=== PATIENT | female | born 1930 | race Caucasian/White ===

== ENCOUNTER → 2016-07-25 | Outpatient (CLI) | payer MEDICARE, BC ==
[~2016-07-25] MED LIST: ACETAMINOPHEN PO; ALBUTEROL17 GM INH; AMOXICILLIN500 M1 PO; ASPIRIN; ASPIRIN PO; ASPIRIN81 M1 PO; ATIVAN PO; CARAFATE PO; CARBIDOPA-LEVO1 EAC5 PO; CELEXA PO; CELEXA10 MG PO; CELEXA20 MG PO; CERTAGEN PO; COUMADIN PO; COUMADIN5 MG PO; DAZIDOX10 MG PO; DECADRON; DOXYCYCLINE PO; EMBEDA; KCL; KLOR-CON 88 ME1; KLOR-CON 88 ME1 PO; LASIX PO; LASIX20 MG PO; LISINOPRIL2.5 MG PO; LORAZEPAM1 MG PO; LOVENOX80 MG/0.8 INJ; MIRALAX255 GM; MUCINEX D ER T1 EAC1 PO; MUCINEX DM TABL1 BOX PO; MUCINEX OTC; MUCINEX100 MG/BOX PO; MULTI VITAMIN1 EACH PO; MULTI-DAY VITAM1 TAB PO; MULTI-VITAMIN1 TAB; MULTIVITAMIN1 UDCAP PO; MULTIVITAMINS1 EAC3 PO; OMEPRAZOLE40 MG PO; OSTEO BI-FLEX1 EAC1 PO; OSTEO BI-FLEX1 EAC2 PO; OSTEO BI-FLEX1 EACH PO; OSTEO BIFLEX; OXECTA7.5 MG PO; OXYCODON-ACETA1 EAC1 PO; OXYCODONE HCL10 M1 PO; OXYCODONE HCL10 MG PO; OXYCODONE-ACET1 EAC1 PO; OXYCONTIN PO; OXYCONTIN20 MG PO; PATIENT'S PHARMACY; PERCOCET; PRAVACHOL PO; PRAVASTATIN SOD20 MG PO; PRAVASTATIN SOD40 MG; PREDNISONE5 M1 PO; PRILOSEC; PRILOSEC PO; PRILOSEC20 M1 PO; PRILOSEC20 MG; PRILOSEC40 MG PO; PYRIDIUM PO; SENNA LAXATIVE1 TAB PO; SENNA8.6 M1 PO; SENNA8.6 M2 PO; VYTORIN 10/20 T1 TAB; ZOFRAN ODT4 MG PO; [UNRECOGNIZED DRUG - REMARK]; mucinex PO
--- NOTE | ~2016-07-25 | CT71 ---
[facility] A Service of [facility] RADIOLOGY TEXT RESULTS PATIENT: RAHUL AARON LOCATION: [facility] : 31 UNIT #: [id number] AGE: [address]: Geovanny Malin MD SEX: F ORDER DR: [id number] [place] [id number] [facility]. [place], [place] [address] [id number] O MR#: [id number] Acc #: [id number] NAME: RAHUL AARON : 1930 SEX: F STUDY DATE/TIME: 07/25/2016 15:46 UNIT: [facility] ROOM: STUDY DESCRIPTION: CT Head Wo Contrast Attending Physician: Geovanny Malin Jr., M.D. Referring Physician: Geovanny Malin Jr., M.D. Ordering Physician: Geovanny Malin Jr., M.D. Primary Care Physician: Geovanny Malin Jr., M.D. MEDICAL IMAGING REPORT This report is preliminary unless electronic signature is present EXAM CT scan of the head without contrast INDICATION Head trauma 2 years ago with headaches since then which are worsening in the last week. COMPARISON 06/27/[address] exam was performed with one or more of the following radiation dose reduction techniques: automatic exposure control, adjustment of mA and/or kV according to patient size, and iterative reconstruction. FINDINGS Unenhanced images were obtained through the brain. There is mild generalized atrophy with symmetric small vessel ischemic changes around the ventricles. There has been no change from the prior study. There are no acute findings. There is no hemorrhage. IMPRESSION Stable atrophy and small vessel ischemic changes. No acute findings. Dictated by... Kurt العراقي M.D. THIS IS AN ELECTRONICALLY VERIFIED REPORT Kurt العراقي M.D. at 07/26/2016 11:53 AM MARY/mariah TD: 07/26/2016 10:26 JOB #: [id number] [facility] A Service of [facility] RADIOLOGY TEXT RESULTS PATIENT: RAHUL AARON [id number] UNIT #: [id number] AGE: [address]: Geovanny Malin MD SEX: F ORDER DR: MEDICAL IMAGING REPORT Page 1 of 1 COPY
== END | disposition home or self-care (01) ==
LOC: CCAT 15:13
DX: R51 Headache (principal); G31.9 Degenerative disease of nervous system, unspecified
CPT/HCPCS: 70450

== ENCOUNTER 2016-09-28 15:03 | Inpatient (IN) | payer MEDICARE, BC ==
[~2016-09-28] VITALS: Ht 157.5 cm; Wt 56.0 kg
--- NOTE | ~2016-09-28 | CR72 ---
[facility] A Service of [facility] RADIOLOGY TEXT RESULTS PATIENT: RAHUL AARON LOCATION: [facility] 303- : 31 UNIT #: [id number] AGE: [address]: Ani Caballero MD SEX: F ORDER DR: [id number] [facility] [address] [place], [place] [address] [id number] I MR#: [id number] Acc #: [id number] NAME: RAHUL AARON : 1930 SEX: F STUDY DATE/TIME: 10/01/2016 6:30 UNIT: [address] ROOM: [facility] STUDY DESCRIPTION: CR Chest Single View Portable Attending Physician: Ani Caballero M.D. Ordering Physician: Zoran Gillette M.D. Primary Care Physician: Geovanny Malin Jr., M.D. MEDICAL IMAGING REPORT This report is preliminary unless electronic signature is present EXAM Portable chest INDICATION Shortness of air and chest pain today. PROCEDURE Frontal view chest. COMPARISON 09/28/2016. FINDINGS Heart size is unchanged. Interval increase in size of the left pleural effusion now large. No new dense consolidation or visible pneumothorax. IMPRESSION Interval increase in size of the left pleural effusion since 09/28/2016. Dictated by... Jose Bird M.D. THIS IS AN ELECTRONICALLY VERIFIED REPORT Jose Bird M.D. at 10/02/2016 8:16 AM LAW/stacy TD: 10/01/2016 07:44 JOB #: [id number] MEDICAL IMAGING REPORT Page 1 of 1 COPY
--- NOTE | ~2016-09-28 | CO ---
Unit #: [id number] #: [id number] Patient: RAHUL NOLEN [id number] [address] [address] [id number] I MR#: [id number] NAME: RAHUL NOLEN ROOM: 303 Age: 86 Sex: F Admission Date: 09/28/2016 : 1930 Attending Physician: Ani Caballero M.D. Primary Care Physician: Geovanny Malin Jr., M.D. Consultation Date: 10/01/2016 CONSULTATION REPORT REASON FOR CONSULTATION Congestive heart failure. HISTORY OF PRESENT ILLNESS This is an 86-year-old white female with a past medical history of having an ITP and status post splenectomy, history of PE, DVT, status post IVC filter, history of esophageal strictures, chronic pain, is on pain medicines for every 4 hours. She also has anxiety and depression. She lives with her , who is her caregiver and also her son and granddaughter helps with her care. The patient is a fairly poor historian, but her and son are at the bedside. They contribute to her history. The patient has been having a 2 to 3 month history of increasing shortness of breath and worsening productive cough. No fever or chills. Denies any chest pain, pain in her neck, bilateral jaws, shoulders, arms, or elbow. She does have 2-pillow orthopnea that is not new. No paroxysmal nocturnal dyspnea or orthopnea, just has a little bit of swelling in her lower extremities. No significant weight gain or weight loss. She does not have a very good appetite according to the spouse. She was having a little bit of nausea and vomiting, but sometimes it is not unusual. She does have difficulty swallowing and has choked on her food and on her last EGD it did show she had esophageal stricture that was difficult dilatation. She has severe presbyesophagus as well as tight esophageal strictures. The patient is being treated for fluid overload. Her echo showed LVEF of 50% to 55% with moderate to severe tricuspid regurgitation. The patient was started on IV Lasix. Her chest x-ray showed vascular congestion, bilateral interstitial prominence and small to moderate size bilateral pleural effusions, larger on the left. BNP on admission was 99, but based on her worsening chest x-ray and her symptoms, Cardiology has been asked to assist with evaluation and management. PAST MEDICAL HISTORY 1. History of ITP, status post splenectomy. 2. History of pulmonary embolism and DVT, status post IVC filter. 3. History of hyperlipidemia. 4. Chronic pain syndrome, maintained on oxycodone, followed by Dr. Campa. 5. Anxiety and depression. 6. History of esophageal strictures. EGD showed severe presbyesophagus as well as tight esophageal strictures. Unit #: [id number] #: [id number] Patient: RAHUL NOLEN 7. Tremors, the patient is on carbidopa and levodopa, follows Dr. Chowdhury for possible Parkinson's. PAST SURGICAL HISTORY 1. IVC filter placement. 2. EGD and colonoscopy. 3. Splenectomy. 4. Cataract surgery. 5. Cholecystectomy. 6. Appendectomy. 7. Hemorrhoid surgery. 8. Bilateral knee surgery. HOME MEDICATIONS Oxycodone/acetaminophen 10/325 one tablet p.o. 5 times daily p.r.n. for pain, carbidopa/levodopa 25/100 one tablet p.o. b.i.d., Prilosec 40 mg p.o. b.i.d., Lorazepam 1 mg p.o. daily, citalopram 20 mg 1 tablet daily, Pravachol 20 mg p.o. daily, Coumadin 2.5 mg p.o. daily, multivitamin one tablet daily, Senokot one tablet p.o. daily. ALLERGIES Sulfonamides, codeine, clavulanic acid, ciprofloxacin, omeprazole, lansoprazole. SOCIAL HISTORY The patient lives at home with her who is her caregiver and the son and granddaughter help with her care. She uses a walker when she does get around. She is very sedentary. She quit smoking several few years ago. No alcohol or illicit drug abuse. FAMILY HISTORY Her brother had colon cancer. REVIEW OF SYSTEMS See details in HPI. PHYSICAL EXAMINATION GENERAL: Ms. Nolen is an 86-year-old white female, in no acute respiratory distress. She is awake, alert, answers some questions, but has a poor memory recall. VITAL SIGNS: Currently, blood pressure is 121/70, heart rate is 96, respirations 18, temperature 97.3, O2 saturations 96% on room air. NECK: Trachea midline. No thyromegaly or lymphadenopathy. Normal carotid upstrokes. No jugular venous distention. HEART: S1, S2. Regular rate and rhythm. Soft systolic murmur, lower left sternal border. LUNGS: Diminished with few faint rales in bases. ABDOMEN: Slightly obese, soft, and nontender. EXTREMITIES: Pedal pulses are palpable. Trace pedal edema. DIAGNOSTIC STUDIES LABORATORY RESULTS: ABGs on admission; pH is 7.420, pCO2 of 41.5, pO2 of 79.0 and that was on 2 L. Glucose 80, BUN 10, creatinine 0.8, eGFR is 67.3. Sodium 141, potassium 4.9, chloride 104, CO2 of 30, calcium is 8.0, total protein 5.4, albumin 2.2, bilirubin total 0.5, AST 13, ALT 8, alkaline phosphatase is 87. TSH is 2.12. WBC is 17.9, hemoglobin 11.2, hematocrit 35.2 and platelets is 438. Initial cardiac enzymes; CK-MB is 2.1 with troponin less than 0.05. Repeat troponin less than 0.03, less Unit #: [id number] #: [id number] Patient: SELVAGE,RAHUL than 0.03. BNP is 99 on admission. INR is 2.6. Urinalysis; leuk esterase trace, 0.2 urobilinogen, 5 to 10 rbc's, 5 to 10 wbc's. Urine culture, final, mixed growth of gram-positive zach. Sputum; final, just moderate wbc's and no organisms. Blood cultures, preliminary report, negative. IMAGING STUDIES: Chest x-ray done today shows interval increase in size of the left pleural effusion since 09/28/2016. On admission, her chest x-ray showed vascular congestion and bilateral interstitial prominence raises suspicions of congestive heart failure, fluid overload and small to moderate size bilateral pleural effusions, left larger than right. EKG shows normal sinus rhythm with sinus arrhythmia, some slow R-wave progression, low voltage, nonspecific ST-T wave abnormalities. IMPRESSION 1. Acute on chronic hypoxic respiratory failure. 2. Pneumonia. 3. Acute congestive heart failure, diastolic, left ventricular ejection fraction of 50% to 55% on 2D echo on 09/29/2016. 4. Moderate to severe tricuspid regurgitation with elevated RVSP 49 mmHg. 5. Also shows moderately enlarged right atrial size. 6. Dysphagia, following by Dr Morillo, has a history of esophageal strictures. 7. Chronic pain syndrome. 8. Questionable Parkinson disease. 9. Hyperlipidemia. 10. Reformed smoker. 11. History of deep venous thrombosis and pulmonary embolism with therapeutic INR and has inferior vena cava filter. 12. Bilateral pleural effusions. 13. History of idiopathic thrombocytopenic purpura, status post splenectomy. 14. Moderate protein malnutrition. 15. Questionable dementia. 16. Anxiety. PLAN 1. Cardiology consult to assist with managing patient's congestive heart failure. Continue diuresing with IV Lasix. Strict intake and output. Daily weight, 1800 mL, and 24 hour fluid restriction. 2. Dr. Key had a long discussion with the patient's spouse and son at the bedside. Dr. Key is familiar with the patient's family. The patient's is her patient in the office. 3. Continue the patient on her Coumadin anticoagulation. No signs or symptoms of acute bleeding. 4. On exam, there are no signs or symptoms of unstable angina. 5. At this point, no further ischemic heart disease workup is necessary because of her multiple comorbidities and the wants conservative medical management. 6. Continue treatment for her pneumonia and respiratory failure. 7. Pulmonology has been consulted for the left lower effusion, she may need a thoracentesis. Thank you very much for allowing us to assist in her care. Further recommendations pending per Dr. Key. Unit #: [id number] #: [id number] Patient: RAHUL NOLEN Dictated by... Maldonado Francois/hal TD: 10/02/2016 02:17 JOB #: [id number] CONSULTATION REPORT Page 1 of 1 X Mellisa Burgos APRN CONSULTATION REPORT
--- NOTE | ~2016-09-28 | DS ---
Unit #: [id number] #: [id number] Patient: RAHUL NOLEN [id number] [address] [address] [id number] I MR#: [id number] NAME: RAHUL NOLEN ROOM: 303 Age: 86 Sex: F Admission Date: 09/28/2016 : 1930 Discharge Date: 10/04/2016 Attending Physician: Ani Caballero M.D. Primary Care Physician: Geovanny Malin Jr., M.D. DISCHARGE SUMMARY PRINCIPAL DIAGNOSES 1. Sepsis secondary to left lower lobe pneumonia. 2. Large exudative left pleural effusion with pending flow cytometry. 3. Ixhef-cz-ybqgrth diastolic congestive heart failure with ejection fraction of 55%. 4. Acute hypoxic respiratory failure. 5. Dysphagia. 6. Kijhxeqs-ny-gzmkpo tricuspid regurgitation. 7. History of deep venous thrombosis and pulmonary embolism maintained on chronic anticoagulation. 8. Chronic pain, maintained on narcotics. 9. Moderate protein malnutrition. 10. Tremor without evaluation for Parkinson's disease in progress. 11. Anxiety. 12. Dementia. 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 14. Right state 1 to 2 heel pressure ulcers. 15. Pulmonary hypertension. 16. Mediastinal lymphadenopathy with pleural effusion concerning for underlying lymphoma. 17. Moderate protein malnutrition. 18. History of idiopathy thrombocytopenia purpura status post splenectomy. 19. Depression. 20. Hyperlipidemia. CONSULTANTS 1. Dr. Packer - pulmonology 2. Dr. Key - cardiology 3. Dr. Quiros - oncology 4. Dr. Morillo - gastroenterology PROCEDURES 1. Left-sided thoracentesis on October 03, 2012 with removal of 1300 mL of fluid, Gram stain was negative and fluid consistent with exudative effusion, flow cytometry pending. 2. Chest x-ray, September 28, 2016, with cardiac enlargement and vascular congestion, bilateral interstitial prominence noted, bilateral pleural effusions noted. Consolidation atelectasis left lung base noted. 3. CT of the chest without contrast on October 02, 2016, with a left left-sided effusion, complete atelectasis left lower lobe, small right-sided effusion, tree-n-bud infiltrates of the right lung are noted, large hiatal hernia intrathoracic stomach noted, prominence of mediastinal lobes, aneurysmal dilatation of the aorta noted, 4 mm Unit #: [id number] #: [id number] Patient: RAHUL NOLEN noncalcified nodule in the upper lobe of the left, the patient is status post splenectomy. 4. 2 dimensional echocardiogram, on September 29, 2016, with ejection fraction of 50% to 55%, severe septal hypokinesis noted, moderately enlarged right atrial size and moderately dilated right ventricle, moderate severe tricuspid regurgitation and a right ventricular systolic pressure 49 mmHg. CLINICAL HISTORY AND HOSPITAL COURSE Ms. Nolen is a nice 86-year-old female, who presented to the emergency department with increasing shortness of breath. Please refer to history and physical, for further details. Chest x-ray, in the emergency department, though questionable pneumonia, particularly on the right lower lobe. The patient was found to be hypoxic on room air and she had a white count of 14,000. Chest x-ray was also consistent with congestive heart failure. The patient was subsequently admitted. The patient was placed on broad spectrum antibiotic therapy but virtually her respiratory status did not improve. Cardiology was consulted given her vascular congestion. Placed her on diuretics, again with only slight improvement in her respiratory status. 2 dimensional echocardiogram was done with results as noted. At this point, she will be maintained on diuretics as an outpatient and was also placed on a low dose of lisinopril. She will follow up with cardiology on an outpatient basis. In regards to the patient pneumonia, again, she was maintained on the antibiotics, namely Rocephin and doxycycline. She remained afebrile and her white blood cell count remained stable at 14. She will complete a few more days of doxycycline as an outpatient. The patient had pleural effusion upon presentation which subsequently worsened particularly on the left. At this point, pulmonology was consulted and the patient subsequently underwent thoracentesis after reversal of her Coumadin with FFP, 1300 mL of fluid were removed and flow cytometry is currently pending. There have been no organisms noted on Gram stain. A CT scan of the chest was done and during the evaluation the patient's pleural effusion showed a significant new lymphadenopathy in addition to appearance of some underlying kidney disease and has some underlying lymphoma. Dr. Quiros was consulted. At this point again flow cytometry is pending and he will follow this up on an outpatient basis and treat the patient if necessary. The patient does have some significant underlying memory loss of which the family is aware and they are very supportive at home. Family does not wish for her to go to rehab at this point. The patient will be discharged home today with home health. She will need close follow up of her INR given her Coumadin is reversed for her thoracentesis. The patient did have some significant dysphagia particularly upon presentation. She was seen by speech therapy who modified diet and subsequently increased during hospitalization. Dr. Morillo was consulted given concerns for perhaps needing EGD but the patient is clinically improved and I think this can be followed up as an outpatient. Unit #: [id number] #: [id number] Patient: RAHUL NOLEN DISCHARGE CONDITION Stable. DISCHARGE STATUS Discharged to home. DISCHARGE MEDICATIONS 1. Coumadin 2.5 mg daily 2. Celexa 20 mg daily 3. Pravachol 20 mg daily 4. Ativan 1 mg p.o. daily 5. Senna 8.6 mg p.o. daily p.r.n. for constipation 6. Lasix 20 mg b.i.d. 7. Lisinopril 2.5 mg daily 8. Carbidopa-Levodopa 25/100 mg one b.i.d. 9. Daily multivitamin 10. Percocet 10/325 one p.o. five times daily p.r.n. for pain 11. Prilosec 40 mg b.i.d. 12. Doxycycline 100 mg p.o. b.i.d. for two days DISCHARGE INSTRUCTIONS The patient is instructed to follow a regular diet. In regards to her diet consistency she should remain on soft diet with thin liquids. Family has been instructed on reflux precautions. The patient can increase her activity as tolerated. FOLLOWUP The patient is to have a follow up INR done October 06, 2016 via home health. She should follow up with Dr. Quiros next week in regards to results of her pleural fluid study. Dictated by... Ani Caballero M.D. MAKEDA/adi TD: 10/05/2016 09:39 JOB #: [id number] DISCHARGE SUMMARY Page 1 of 1 X Ani Caballero MD DISCHARGE SUMMARY
--- NOTE | ~2016-09-28 | CR72 ---
[facility] A Service of [facility] RADIOLOGY TEXT RESULTS PATIENT: RAHUL AARON LOCATION: [facility] 303- : 31 UNIT #: [id number] AGE: [address]: Ani Caballero MD SEX: F ORDER DR: [id number] [facility] [address] [place], [place] [address] [id number] I MR#: [id number] Acc #: [id number] NAME: RAHUL AARON : 1930 SEX: F STUDY DATE/TIME: 09/28/2016 16:21 UNIT: [address] ROOM: [facility] STUDY DESCRIPTION: CR Chest Single View Portable Attending Physician: Humaira Mendoza M.D. Ordering Physician: Wilton Berrios M.D. Primary Care Physician: Geovanny Malin Jr., M.D. MEDICAL IMAGING REPORT This report is preliminary unless electronic signature is present EXAM Portable chest HISTORY Shortness of air and cough for 3 months. FINDINGS Dense consolidation or atelectasis in the left base and mild interstitial prominence in the mid and lower lungs bilaterally and small bilateral pleural effusions, probably larger on the left are new findings compared to 02/07/2014. Probable underlying cardiomegaly with previously noted large hiatal hernia likely contributing to the density in the right cardiophrenic angle corresponding to a similar findings on older chest x-rays. Central vascular congestion as well. IMPRESSION 1. Cardiac enlargement and vascular congestion and bilateral interstitial prominence raises suspicion of congestive heart failure or fluid overload. 2. Small to moderate-sized bilateral pleural effusions, probably larger on the left. 3. Consolidation or atelectasis in the left base. 4. Previously noted large hiatal hernia contributes to the density at the right cardiophrenic angle and corresponds to prior findings on x-ray and CT. Dictated by... Joel Melendez M.D. THIS IS AN ELECTRONICALLY VERIFIED REPORT Joel Melendez M.D. at 09/29/2016 10:07 PM DFL/saman [facility] A Service of [facility] RADIOLOGY TEXT RESULTS PATIENT: RAHUL AARON LOCATION: [facility] 303-01 : 31 UNIT #: [id number] AGE: [address]: Ani Caballero MD SEX: F ORDER DR: TD: 09/28/2016 21:42 JOB #: [id number] MEDICAL IMAGING REPORT Page 1 of 1 COPY
--- NOTE | ~2016-09-28 | HP ---
Unit #: [id number] #: [id number] Patient: RAHUL AARON [id number] [facility] [address] [facility]. [place], [place] [address] [id number] I MR#: [id number] NAME: RAHUL AARON ROOM: 94818 Age: 86 Sex: F Admission Date: 09/28/2016 : 1930 Attending Physician: Humaira Mendoza M.D. Primary Care Physician: Geovanny Malin Jr., M.D. HISTORY AND PHYSICAL CHIEF COMPLAINT Shortness of air. HISTORY OF PRESENT ILLNESS The patient is an 86-year-old female with past medical history of hyperlipidemia, ITP, PE/DVT, chronic anticoagulation with Coumadin, chronic pain, anxiety, depression, esophageal stricture, tremor, cognitive impairment, who presented to the emergency department for evaluation of the above. History is obtained from chart review and discussion with the ER staff as well as from multiple family members, including her , who are at bedside. The patient has apparently had a two to three month history of increasing shortness of breath and intermittently productive cough. She has not had fever. She denies any chest pain. She has two-pillow orthopnea that is not a new problem. She denies any paroxysmal nocturnal dyspnea. No swelling of the legs. She has maintained her weight. She has actually lost weight over the past couple of years. She has had decreased appetite. She reports one bout of emesis. She has intermittent problems with constipation. She does report difficulty swallowing. She sometimes gets choked on her food. In the emergency department initial oxygen saturation was 86% on room air, pulse 94, blood pressure 127/72, white blood cell count 14. Chest x-ray shows vascular congestion and bilateral interstitial prominence concerning for CHF with associated bilateral pleural effusions. There is also consolidation involving the left base. She was given Rocephin and azithromycin in the emergency department as well as a 500 mL normal saline bolus. She was being admitted to [facility] for evaluation and further treatment. PAST MEDICAL HISTORY 1. Admission to [facility] in January of 2015 (no records). 2. Admission to [facility] November 14-2011 for right lower extremity DVT. 3. Hyperlipidemia. 4. 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 5. History of PE/DVT, status post IVC filter placement, on chronic anticoagulation with Coumadin. 6. Chronic pain, maintained on oxycodone, followed by Dr. Campa. Unit #: [id number] #: [id number] Patient: RAHUL AARON 7. Anxiety and depression. 8. History of esophageal stricture. The patient had EGD on December 06, 2012 that showed severe presbyesophagus as well as tight esophageal stricture. 9. Tremor. The patient is on carbidopa and levodopa and has an appointment with Dr. Chowdhury for possible Parkinson's. 10. Cognitive impairment. The patient is currently at baseline. She is oriented to person and place. PAST SURGICAL HISTORY 1. IVC filter placement. 2. EGD and colonoscopy. 3. Splenectomy. 4. Cataract surgery. 5. Cholecystectomy. 6. Appendectomy. 7. Hemorrhoid surgery. 8. Bilateral knee surgery. SOCIAL HISTORY The patient lives with her . She quit smoking years ago. She walks with a walker. Her code status is a Full Code. FAMILY HISTORY Family history is notable for her brother having colon cancer. ALLERGIES Sulfa, codeine, clavulanic acid, ciprofloxacin, omeprazole, lansoprazole. HOME MEDICATIONS 1. Oxycodone and acetaminophen 10/325 five times daily p.r.n. 2. Carbidopa and levodopa 25/100 b.i.d. 3. Prilosec 40 mg b.i.d. 4. Lorazepam 1 mg daily. 5. Citalopram 20 mg daily. 6. Pravachol 20 mg daily. 7. Coumadin 2.5 mg daily. 8. Multivitamin daily. 9. Senna 8.6 mg daily p.r.n. REVIEW OF SYSTEMS A complete review of systems is negative except as indicated in the HPI. DIAGNOSTIC STUDIES CARDIOVASCULAR: EKG shows normal sinus rhythm with sinus arrhythmia and a rate of 89 beats per minute. IMAGING: Chest x-ray shows vascular congestion with bilateral interstitial prominence and bilateral pleural effusions concerning for congestive heart failure. There is consolidation involving the left base. LABORATORY: BNP is 99. Lactic acid 1.1. Arterial blood gas shows pH of 7.42, pCO2 of 45.1, pO2 of 72 on 2 L. Comprehensive metabolic panel notable for a glucose of 113, ALT is 6, alkaline phosphatase 106, albumin 2.8. Troponin is less than 0.05. Complete blood count notable for white blood cell count of 14, MCV is 99.4, platelets 458. PHYSICAL EXAMINATION Unit #: [id number] #: [id number] Patient: RAHUL AARON VITAL SIGNS: Temperature is 98.2. Pulse 94. Respirations 15. Blood pressure 127/72. Oxygen saturation 86% on room air, now 97% on 2 L. GENERAL: The patient is a female who is awake and alert, in no acute distress. HEENT: The head is atraumatic. Mucous membranes are moist. NECK: Neck is supple. Trachea is midline. CARDIOVASCULAR: Regular rate and rhythm. LUNGS: Demonstrate a few scattered rhonchi with decreased breath sounds at the bases. Breathing is not labored. ABDOMEN: Abdomen is soft, nontender, with bowel sounds present in all four quadrants. EXTREMITIES: Nontender with no pedal edema. NEUROLOGIC: The patient is awake and alert. She is oriented to person and place. She does have a tremor. She follows commands. PSYCHIATRIC: Mood and affect are normal. The patient is cooperative. SKIN: Skin of examined areas is warm and dry. ASSESSMENT The patient is an 86-year-old female with: 1. Acute respiratory failure, hypoxic. 2. Pneumonia, community acquired. The patient received Rocephin and azithromycin in the emergency department. 3. Possible congestive heart failure by chest x-ray findings and possibly history. The patient denies ever having history of CHF. BNP is 99. I do not see an echocardiogram in [facility]. The patient did have a stress test August 01, 2003 that showed left ventricular contractility appears hyperdynamic with a calculated ejection fraction of 91%. There was no evidence of ischemia. 4. Bilateral pleural effusions. 5. Sepsis with initial lactic acid of 1.1. 6. Hyperlipidemia. 7. Idiopathic thrombocytopenic purpura, status post splenectomy, followed by Dr. Quiros. 8. History of pulmonary embolism/deep venous thrombosis, status post IVC filter, maintained on chronic anticoagulation with Coumadin. I do not see an INR yet. 9. Chronic pain, maintained on oxycodone, followed by Dr. Capma. 10. Anxiety/depression. 11. History of esophageal stricture. The patient has seen Dr. Morillo in the past. 12. Cognitive impairment. 13. Tremor. 14. The patient is on carbidopa and levodopa for possible Parkinson's. She has an appointment with Dr. Chowdhuyr within the next month. PLAN 1. Admit to intermediate level. 2. N.p.o. except medications until speech evaluation. 3. Speech therapy to evaluate and treat. 4. Supplemental oxygen. 5. Blood cultures x2. 6. Sputum culture and sensitivity. 7. Rocephin and azithromycin for community-acquired pneumonia pending further workup. 8. DuoNebs. 9. Check 2D echo. 10. Strict Is and Os. 11. Daily weights. Unit #: [id number] #: [id number] Patient: RAHUL AARON 12. Serial cardiac enzymes. 13. TSH. 14. Sepsis protocol with repeat lactic acid. 15. Check urinalysis. 16. Check INR. 17. P.r.n. Zofran. 18. Repeat labs in the morning. 19. Additional workup and consultants based on above. 20. Regarding code status, the patient is a Full Code. Dictated by Humaira Mendoza M.D. CHANELLE/norbert TD: 09/28/2016 18:54 JOB #: [id number] HISTORY AND PHYSICAL Page 1 of 1 X Humaira Mendoza MD X HISTORY AND PHYSICAL
--- NOTE | ~2016-09-28 | CO ---
Unit #: [id number] #: [id number] Patient: RAHUL AARON [id number] [address] [address] [id number] I MR#: [id number] NAME: RAHUL AARON ROOM: 303 Age: 86 Sex: F Admission Date: 09/28/2016 : 1930 Attending Physician: Ani Caballero M.D. Primary Care Physician: Geovanny Malin Jr., M.D. Consultation Date: 10/04/2016 CONSULTATION REPORT REASON FOR EVAL Pleural effusion with possible lymphoma, please evaluate. HISTORY OF PRESENT ILLNESS 86-year-old lady well known to me from 2001 when she had presented with immune thrombocytopenia, treated with steroids with recurrence, status post splenectomy. Post splenectomy, she developed a DVT, PE and IVC filter was placed. Had, during the next few years, areas around the left kidney which were suspicious on and off and we did not pursue it with biopsy at that time. Subsequently, they developed debilitating degenerative arthritis and she is basically bed and chair bound due to the arthritis. Now presents with increasing shortness of breath, left sided pleural effusion, status post thoracocentesis. We were requested to evaluate. Today, on questioning, she is already feeling better and has no fever, chills or sweats. PAST HISTORY As stated above. Multiple episodes of ITP-related thrombocytopenia, status post splenectomy, DVT, PE, IVC filter, on anticoagulation for Coumadin for life, due to mainly decreased performance status and being essentially bed bound and chair bound. No past history of definite lymphoma. She does have a history of anxiety and depression, cognitive impairment, possible parkinsonism, being evaluated as an outpatient. Past history is also very extensive but not related to the current admission. Please see the chart if you need details. FAMILY HISTORY Negative for lymphoma. Positive for colon cancer in a brother. SOCIAL HISTORY She quit smoking decades ago and lives with who is very supportive. Son is in the room, very supportive. MEDICATIONS Chronic medications: 1. Pravachol. 2. Citalopram. 3. Multivitamins. 4. Senna. 5. Oxycodone. 6. Carbidopa. 7. Prilosec. Unit #: [id number] #: [id number] Patient: RAHUL AARON 8. Lorazepam. ALLERGIES Sulfa, codeine, Cipro, omeprazole, lansoprazole, clavulanic acid. REVIEW OF SYSTEMS Very extensive but mainly related to degenerative arthritis with decreased motion, chronic active pain, discomfort, shortness of breath. Otherwise, six or eight symptoms were within normal limits. PHYSICAL EXAMINATION GENERAL: She appears now asthenic. No supraclavicular, axillary or groin nodes. LUNGS: status post thoracocentesis, much improved with bilateral air entry. CARDIOVASCULAR: Distant S1, S2. ABDOMEN: Flaccid. No organomegaly. EYE SURGEON: Grossly intact. Detailed exam of the EYE SURGEON was not performed. PELVIC/BREAST EXAM: Not performed. DIAGNOSTIC STUDIES LABORATORY: CBC - hemoglobin 11.3, hematocrit 35.1, white count 13.8, platelets 404,000, sodium 138, potassium 3.9, chloride 90, CO2 36, glucose 88, BUN 15, creatinine 1.0. Today's INR is 2.2. She is status post thoracocentesis. Cytology and flow cytometry are pending. IMPRESSION There is a possibility that this 86-year-old lady has now lymphoma. Cannot completely rule out other malignancy. She is status post thoracocentesis and has multiple other comorbid conditions making her not a great candidate for aggressive therapy but we will monitor closely as an outpatient, check the cytology and flow cytology and, if lymphoma is proven, we can treat with Rituxan single agent which is very well tolerated at this age. Will schedule outpatient followup. Dictated by... Stephen Zavala/tom TD: 10/04/2016 12:14 JOB #: [id number] CONSULTATION REPORT Page 1 of 1 X Shubham Quiros MD X CONSULTATION REPORT
--- NOTE | ~2016-09-28 | CO ---
Unit #: [id number] #: [id number] Patient: RAHUL NOLEN [id number] [address] [address] [id number] Bernarda MR#: [id number] NAME: RAHUL NOLEN ROOM: 303 Age: 86 Sex: F Admission Date: 09/28/2016 : 1930 Attending Physician: Ani Caballero M.D. Primary Care Physician: Geovanny Malin Jr., M.D. Consultation Date: 10/01/2016 CONSULTATION REPORT REASON FOR CONSULTATION Difficulty swallowing. HISTORY OF PRESENT ILLNESS Ms. Nolen is an 86-year-old pleasant, lady, was admitted on the floor with complaints of wheezing and shortness of breath, was found to be in worsening congestive heart failure as well as pneumonia and is being treated for the same. She also has been complaining of swallowing problems . The patient has a history of esophageal stricture, very large hiatal hernia, and a tortuous esophagus. Last I saw her was three years ago in 2012 and EGD from then was reviewed. The patient apparently has been swallowing fair at home prior to this acute illness and was able to keep food down most of the time with some limitations. PAST MEDICAL HISTORY History of ITP, status post splenectomy; history of DVT and PE, status post filter placement, on chronic anticoagulation; and chronic obstructive airway disease. SOCIAL HISTORY Lives with her . Nonsmoker and nonalcoholic. FAMILY HISTORY Cousin for colon cancer. ALLERGIES Multiple list reviewed. MEDICATIONS Reviewed, includes Coumadin. REVIEW OF SYSTEMS A complete 10-point review of systems was done, which was unremarkable other than as mentioned above. PHYSICAL EXAMINATION GENERAL: The patient is very frail looking, somewhat short of breath still. VITAL SIGNS: Otherwise stable with a temperature of 98.4, pulse of 98, respirations of 20, and blood pressure 137/74. HEENT: Pupils are equal and reactive. Sclerae are anicteric. Oral mucosa moist. Unit #: [id number] #: [id number] Patient: RAHUL NOLEN NECK: No JVD. No lymphadenopathy. CHEST: Diffuse wheezing and scattered crackles. ABDOMEN: Soft, nontender, and nondistended. No organomegaly or ascites. EXTREMITIES: Without any clubbing, cyanosis, or edema. NEUROLOGIC: No focal sensory or motor deficits. DIAGNOSTIC STUDIES LABORATORY RESULTS: Chemistries with normal BUN and creatinine. Normal LFTs. Coags with an INR of 2.6. CBC with a white count of 17.9, hemoglobin of 11.2, and platelet count of 438. ASSESSMENT AND PLAN 1. The patient with history of dysphagia, esophageal stricture as well as tortuous esophagus and a large hiatal hernia. Has been doing fair with her swallowing given the conditions at home prior to this acute illness, currently having some difficulty swallowing. At this time, she is having significant difficulty with the cardiopulmonary status. I will recommend continuing diet as recommended by the Speech Therapy and plan on doing an upper endoscopy once she is stable and is off the Coumadin. So, if needed, we can do the esophageal dilation at the same time. 2. Pneumonia. 3. Congestive heart failure. 4. History of Deep venous thrombosis and pulmonary embolism. Thank you Dr. Mendoza for this interesting consult. We will follow along. Dictated by... Stephen Sharma/hal TD: 10/01/2016 13:38 JOB #: [id number] CONSULTATION REPORT Page 1 of 1 X Darion Morillo MD X CONSULTATION REPORT
--- NOTE | ~2016-09-28 | CR71 ---
[facility] A Service of [facility] RADIOLOGY TEXT RESULTS PATIENT: RAHUL AARON LOCATION: [facility] 303- : 31 UNIT #: [id number] AGE: [address]: Ani Caballero MD SEX: F ORDER DR: [id number] [facility] [address] [facility]. [place], [place] [address] [id number] I MR#: [id number] Acc #: [id number] NAME: RAHUL AARON : 1930 SEX: F STUDY DATE/TIME: 10/03/2016 14:57 [facility] ROOM: [facility] STUDY DESCRIPTION: CR Chest Single View Attending Physician: Ani Caballero M.D. Ordering Physician: Marvel Zarate M.D. Primary Care Physician: Geovanny Malin Jr., M.D. MEDICAL IMAGING REPORT This report is preliminary unless electronic signature is present EXAM Portable chest x-ray, 10/03/2016. HISTORY Status post thoracentesis. REPORT AP radiograph of the chest is presented. COMPARISON 10/01/[address] examination 10/02/2016. FINDINGS No acute bony abnormality. Moderate to marked dextroscoliosis lumbar spine unchanged. Inferior vena caval filter unchanged. Cardiac enlargement unchanged. Patient is status post left thoracentesis. Small residual left effusion. Markedly improved aeration of the left lung overall. There continues to be bilateral interstitial prominence with patchy airspace densities in the bilateral cfr-as-bybtx lung zones. Probably not significantly changed on the right. Improved but still significant on the left. They are likely components of both atelectasis and pneumonia present. Some components of pulmonary edema with interstitial and airspace involvement could be considered. Continued followup to resolution is recommended. There may be a small right pleural effusion. There is no pneumothorax. Note again made of hiatal hernia. Visualized bowel gas pattern otherwise unremarkable. Dictated by... Geovanny Ba M.D. THIS IS AN ELECTRONICALLY VERIFIED REPORT [facility] A Service of [facility] RADIOLOGY TEXT RESULTS PATIENT: RAHUL AARON LOCATION: [facility] 303-01 : 31 UNIT #: [id number] AGE: [address]: Ani Caballero MD SEX: F ORDER DR: Geovanny Ba M.D. at 10/06/2016 7:36 AM JAZMYN/dory TD: 10/03/2016 21:41 JOB #: [id number] MEDICAL IMAGING REPORT Page 1 of 1 COPY
--- NOTE | ~2016-09-28 | CO ---
Unit #: [id number] #: [id number] Patient: RAHUL NOLEN [id number] [address] [place], [place] [address] [id number] I MR#: [id number] NAME: RAHUL NOLEN ROOM: 303 Age: 86 Sex: F Admission Date: 09/28/2016 : 1930 Attending Physician: Ani Caballero M.D. Primary Care Physician: Geovanny Malin Jr., M.D. Consultation Date: 10/02/2016 CONSULTATION REPORT HISTORY OF PRESENT ILLNESS Ms. Nolen is an 86-year-old white female, who was admitted to the hospital on 09/28/2016 with increased shortness of breath. She had a history of hyperlipidemia; ITP; pulmonary emboli; DVT, on chronic anticoagulation with Coumadin; chronic pain; anxiety; depression; esophageal stricture; hiatal hernia; and some cognitive impairment. She apparently is cared for at home by her . She has a 2 to 3-month history of increasing shortness of breath with intermittently productive cough. She has not had any fever. No chest pain. She had two-pillow orthopnea. She does report some difficulty swallowing. She was brought to the emergency room. Her room air O2 saturation was 86%. Chest x-ray showed bilateral interstitial prominence, possible pleural effusions. There was some increased consolidation in the left base. She was admitted, felt to possibly have pneumonia and congestive heart failure. She was seen by Cardiology. She was treated with Rocephin and doxycycline, I believe. Her followup chest x-ray shows increased on the left side effusion. We were asked to see. Her current pro-time is 4.4. She had no fevers, chills, or sweats. Her white blood cell count on admission was 14,000 and on the 5th, it was 17,900. We were asked to see for pleural effusion. PAST MEDICAL HISTORY She has a history of ITP, pulmonary emboli, DVT, and hyperlipidemia. She is status post splenectomy for ITP. History of chronic pain, history of anxiety and depression, history of esophageal stricture and large right-sided hiatal hernia, history of tremor. She is to see Dr. Chowdhury for possible Parkinson disease. She has cognitive impairment. PAST SURGICAL HISTORY IVC filter placement, EGD and colonoscopy, splenectomy, cataract extraction, cholecystectomy, appendectomy, hemorrhoid surgery, and bilateral knee surgery. ALLERGIES Sulfa, codeine, clavulanic acid, Cipro, Prilosec, and Protonix. FAMILY HISTORY Colon cancer. SOCIAL HISTORY Lives with . does most caring for her. Quit smoking years ago. Walks with a walker, but unsteady on feet. MEDICATIONS Unit #: [id number] #: [id number] Patient: RAHUL NOLEN Home medicines include oxycodone, carbidopa, Prilosec, lorazepam, Celexa, Pravachol, Coumadin, multivitamin, and senna. REVIEW OF SYSTEMS Otherwise, negative except per HPI. PHYSICAL EXAMINATION GENERAL: White female, in no distress, mildly short of breath. VITAL SIGNS: Blood pressure is 112/56, pulse 88, respiratory rate 16, and afebrile. HEENT: Normocephalic and atraumatic. Pupils are equal, round, and reactive. Sclerae nonicteric. Nasal passages patent. Posterior pharynx crowded. Dry membranes. NECK: Supple. Trachea midline. No cervical or supraclavicular lymphadenopathy. LUNGS: Reveal diminished breath sounds at the bases. CARDIAC: Heart sounds distant. Regular rate and rhythm. Could not appreciate murmur, rub, or gallop. ABDOMEN: Nontender. Bowel sounds present. No hepatosplenomegaly. EXTREMITIES: Without clubbing, cyanosis, or edema. NEUROLOGIC: Awake and oriented to person and place. Has tremor. Follows commands. PSYCHIATRIC: Affect is calm. SKIN: Warm and dry. DIAGNOSTIC STUDIES LABORATORY RESULTS: Reviewed. IMPRESSION 1. Acute hypoxemic respiratory failure. 2. Likely congestive heart failure with bilateral effusions. 3. Possible pneumonia with tree-in-bud abnormalities in the right lower lobe. Could be from chronic aspiration. 4. Worsening pleural effusions, questionable density in the left lung base. 5. Possible Parkinson's versus essential tremor. 6. History of deep venous thrombosis and pulmonary emboli. PLAN We will check chest CT scan without contrast to better evaluate effusions and possible infiltrates. We will give fresh frozen plasma to reverse pro-time and agree with proceeding with thoracentesis. Checking standard labs for infection, cytology, and possible flow cytometry. We will make further recommendations pending results. Dictated by... Stephen Moya/hal TD: 10/05/2016 12:37 JOB #: [id number] Unit #: [id number] #: [id number] Patient: RAHUL NOLEN CONSULTATION REPORT Page 1 of 1 X Didier Packer MD CONSULTATION REPORT
--- NOTE | ~2016-09-28 | EKG ---
PATIENT: RAHUL AARON UNIT #: [id number] Ventricular Rate: 89 BPM Atrial Rate: 89 BPM P-R Interval: 164 ms QRS Duration: 66 ms Q-T Interval: 368 ms QTC Calculation(Bezet): 447 ms P Eden: 47 degrees Calculated R Eden: 38 degrees Calculated T Eden: 14 degrees Diagnosis Line: Normal sinus rhythm with sinus arrhythmia Diagnosis Line: Low voltage QRS Diagnosis Line: Borderline ECG Diagnosis Line: When compared with ECG of 07-FEB-2014 17:11, Diagnosis Line: Criteria for Inferior infarct are no longer Diagnosis Line: Present Diagnosis Line: Confirmed by MARLEN AVELAR MD ([id number]) on 09/30/2016 Diagnosis Line: 8:22:49 AM INTERPRETING MD: VALENTINO MENDIOLA
--- NOTE | ~2016-09-28 | CT57 ---
[facility] A Service of [facility] & [facility] RADIOLOGY TEXT RESULTS PATIENT: RAHUL AARON LOCATION: [facility] 303- : 31 UNIT #: [id number] AGE: [address]: Ani Caballero MD SEX: F ORDER DR: [id number] [facility] [address]. [place], [place] [address] [id number] I MR#: [id number] Acc #: [id number] NAME: RAHUL AARON : 1930 SEX: F STUDY DATE/TIME: 10/02/2016 19:31 UNIT: A U ROOM: 303 STUDY DESCRIPTION: CT Chest Wo Cont Attending Physician: Ani Caballero M.D. Ordering Physician: Mio Packer M.D. Primary Care Physician: Geovanny Malin Jr., M.D. MEDICAL IMAGING REPORT This report is preliminary unless electronic signature is present EXAM Chest CT no contrast 10/02/2016 INDICATIONS 86-year-old female with a history of cough and shortness of air for 2 weeks. Parkinson's disease. Congestive heart failure. Acute renal failure. Increasing left-sided effusion. TECHNIQUE Noncontrast CT chest was performed. This CT exam was performed with one or more of the following radiation dose reduction techniques: automatic exposure control, adjustment of mA and/or kV according to patient size, and iterative reconstruction. COMPARISON STUDIES Chest x-ray 10/01/2016. Prior chest CT 12/09/2012. FINDINGS There is a large left-sided effusion. There is complete atelectasis of the left lower lobe and significant atelectasis of the lingula. There is a 4 mm noncalcified nodule in the left upper lobe, new compared to the prior study and indeterminate. If the patient is at low risk for malignancy, then interval followup is not necessary. However, if the patient is at high risk for malignancy, then interval followup should occur in 1 year. There are tree-in-bud infiltrates in the right middle lobe and superior segment right lower lobe and upper lobe, most characteristic of an inflammatory or infectious etiology. The patient has a large hiatal hernia and intrathoracic stomach associated with atelectasis in the right lower lobe as well. [facility]. [facility] A Service of [facility] & [facility] RADIOLOGY TEXT RESULTS PATIENT: RAHUL AARON LOCATION: [facility] 303-01 : 31 UNIT #: [id number] AGE: [address]: Ani Caballero MD SEX: F ORDER DR: Small pericardial effusion. No axillary adenopathy on the right. Probable reactive axillary nodes on the left. Interval increase in size of a precarinal node measuring 8 mm. Additional, similar to slightly larger lymph nodes are present in the mediastinum and jamia. There is also a probable enlarged subcarinal node, difficult to separate from the thoracic stomach due to noncontrast technique. This presumed enlarged node measures 17 mm. The patient does have a history of lymphoma and this should be correlated clinically as lymphoma could present similarly. Aorta demonstrates aneurysmal dilatation of the ascending aorta up to 3.7 cm. There is atherosclerotic disease. Abdominal aorta demonstrates advanced atherosclerotic change. There is no hydronephrosis of either kidney. Redemonstration of fullness of the medial and to a lesser extent, lateral cortices of the left kidney which may reflect sequela of the patient's history of lymphoma. This is difficult to further characterize or assessed with or assessed with noncontrast technique. There is also thickening of the soft tissues in the left perirenal space which may reflect sequela of lymphoma as well. No radiopaque stone associated with either kidney. Pancreas atrophic. No drainable fluid collection in the abdomen. The spleen appears to be surgically absent with a dominant splenule in the left upper quadrant, unchanged. Osseous structures demonstrate spinal degenerative changes in the thoracolumbar spine but no suspicious bone lesion. IMPRESSION 1. Large left-sided effusion with complete atelectasis of the left lower lobe and significant atelectasis of the lingula. 2. There is a small right-sided effusion. There are tree-in-bud infiltrates in the right lung, most characteristic of inflammatory or infectious etiology and imaging followup to resolution is recommended after appropriate therapy. 3. Large hiatal hernia and intrathoracic stomach, probably unchanged from prior study for technical factors. 4. Interval increase in prominence of mediastinal nodes which may reflect sequela of lymphoma, given the provided history. See reference measurements above. 5. Aneurysmal dilatation of the aorta. 6. Indeterminate 4 mm noncalcified nodule in the upper lobe on the left. See follow-up recommendations in the body of the report. No small pericardial effusion. 7. 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 Findings are similar to the prior study, although the degree of soft tissue thickening in the pararenal space on the left has increased, which may reflect progression of lymphoma. 8. Status post splenectomy. STAT * RESULT [facility] A Service of [facility] RADIOLOGY TEXT RESULTS PATIENT: RAHUL AARON LOCATION: [facility] 303-01 : 31 UNIT #: [id number] AGE: [address]: Ani Caballero MD SEX: F ORDER DR: Dictated by... Trace Dennis M.D. THIS IS AN ELECTRONICALLY VERIFIED REPORT Trace Dennis M.D. at 10/02/2016 11:22 PM CARO/may TD: 10/02/2016 20:17 JOB #: [id number] MEDICAL IMAGING REPORT Page 1 of 1 COPY
--- NOTE | ~2016-09-28 | XA203 ---
[facility] A Service of [facility] & [facility] RADIOLOGY TEXT RESULTS PATIENT: RAHUL AARON LOCATION: [facility] 303- : 31 UNIT #: [id number] AGE: [address]: Ani Caballero MD SEX: F ORDER DR: [id number] [facility] [address]. [place], [place] [address] [id number] I MR#: [id number] Acc #: [id number] NAME: RAHUL AARON : 1930 SEX: F STUDY DATE/TIME: 10/03/2016 14:27 UNIT: A [facility] ROOM: [facility] STUDY DESCRIPTION: XA Thoracentesis Attending Physician: Ani Caballero M.D. Ordering Physician: Isabel Key M.D. Primary Care Physician: Geovanny Malin Jr., M.D. MEDICAL IMAGING REPORT This report is preliminary unless electronic signature is present EXAM Ultrasound guided left thoracentesis 10/03/2016 CLINICAL HISTORY Left pleural effusion. PROCEDURE A skin site was selected with ultrasound guidance and marked, sterilely prepped and draped and locally anesthetized. Left thoracentesis was performed after sterile preparation and draping, and using a Yueh needle catheter. A total of 1.3 L of fluid was removed and specimen sent for testing as requested. There were no immediate complications. IMPRESSION Successful ultrasound guided left thoracentesis with removal 1.3 L fluid without complication. Dictated by... Marvel Zarate M.D. THIS IS AN ELECTRONICALLY VERIFIED REPORT Marvel Zarate M.D. at 10/04/2016 2:55 PM TEV/segundo TD: 10/03/2016 21:43 JOB #: [id number] MEDICAL IMAGING REPORT Page 1 of 1 COPY
[~2016-09-28 15:03] MED LIST changes: -CARBIDOPA-LEVO1 EAC5 PO; -CELEXA10 MG PO; -DOXYCYCLINE PO; -LISINOPRIL2.5 MG PO; -MULTIVITAMINS1 EAC3 PO; -OXYCODONE-ACET1 EAC1 PO; -PATIENT'S PHARMACY; -PRAVACHOL PO
[2016-09-28 15:49] LABS: BASOPHIL# 0.1 X10e3 (0-0.3); BASOPHIL% 0.9 % (0-2.5); EOSINOPHIL# 0.1 X10e3 (0-0.7); EOSINOPHIL% 0.4 % (0.0-7.0); HEMATOCRIT 38.6 % (35.0-45.0); HEMOGLOBIN 12.4 gm/dL (12.0-16.0); LYMPHOCYTE# 2.5 X10e3 (1.0-3.5); MEAN CELL VOLUME 99.4 FL (83-96); MEAN CORPUSCULAR HEMOGLOBIN 31.9 PG (28-34); MEAN CORPUSCULAR HGB CONC 32.1 g/dL (30-36); MEAN PLATELET VOLUME 7.8 FL (6.5-11.5); MONOCYTE# 0.8 X10e3 (0-1.0); MONOCYTE% 5.4 % (3.0-12.0); NEUTROPHIL# 10.6 X10e3 (1.5-7.1); NEUTROPHIL% 75.3 % (40-75); PLATELET COUNT 458 X10e3 (140-420); RED BLOOD COUNT 3.88 X10e (3.90-5.30); RED CELL DISTRIBUTION WIDTH 14.1 % (11.0-15.5)
[2016-09-28 15:50] LABS: DIFF IND NO
[2016-09-28 15:56] LABS: POC - CKMB 2.1 ng/mL (0.0-7.9); POC - TROPONIN <0.05 ng/mL (<=0.05)
[2016-09-28 16:17] LABS: ALBUMIN SERUM 2.8 g/dL (3.5-5.0); BILIRUBIN, DIRECT 0.1 mg/dL (0.0-0.2); BILIRUBIN,INDIRECT 0.4 mg/dL (0.0-0.9); BILIRUBIN,TOTAL 0.5 mg/dL (0.2-2.0); BUN/CREATININE RATIO 12.22; CALCIUM SERUM 8.4 mg/dL (8.4-10.2); CREATININE SERUM 0.9 mg/dL (0.6-1.4); GLOM FILT RATE Estimated 58.3 mL/min (>60); POTASSIUM 4.4 mmol/L (3.5-5.1); PROTEIN TOTAL SERUM 6.8 g/dL (6.0-8.3)
[2016-09-28 16:53] LABS: ARTERIAL BLD GAS O2 SATURATION 93.9 % (90.0-100.0); ARTERIAL BLOOD GAS CARBOXY HB 0.8 %sat (0.0-9.0); ARTERIAL BLOOD GAS HCO3 29.2 mmol/L; ARTERIAL BLOOD GAS MET HB 0.8 %sat (0.0-2.0); ARTERIAL BLOOD GAS PCO2 45.1 mmHg (35.0-45.0)
[2016-09-28 16:54] LABS: ARTERIAL BLOOD GAS ALLEN TEST NORMAL; ARTERIAL BLOOD GAS ART SITE RIGHT RADIAL; ARTERIAL BLOOD GAS DELIVERY NASAL CANNULA; ARTERIAL DRAW? YES
[2016-09-28] MEDS ORDERED: PATIENT'S PHARMACY (17:05)
[2016-09-28] MEDS ORDERED: OXYCODONE-ACET1 EAC1 PO (17:06)
[2016-09-28] MEDS ORDERED: ATIVAN PO (17:07)
[2016-09-28] MEDS ORDERED: PRILOSEC PO (17:07)
[2016-09-28] MEDS ORDERED: PRAVACHOL PO (17:07)
[2016-09-28] MEDS ORDERED: CELEXA10 MG PO (17:07)
[2016-09-28] MEDS ORDERED: CARBIDOPA-LEVO1 EAC5 PO (17:07)
[2016-09-28] MEDS ORDERED: MULTIVITAMINS1 EAC3 PO (17:08)
[2016-09-28] MEDS ORDERED: COUMADIN PO (17:08)
[2016-09-28] MEDS ORDERED: SENNA8.6 M1 PO (17:08)
[2016-09-28 21:05] LABS: INR 2.4; PROTHROMBIN TIME (PATIENT) 26.3 SECONDS (10.0-11.7)
[2016-09-28 23:22] LABS: INR 2.5; PROTHROMBIN TIME (PATIENT) 27.3 SECONDS (10.0-11.7)
[2016-09-28 23:31] LABS: CK TOTAL 37 IU/L (26-140)
[2016-09-29 03:31] LABS: URINE SOURCE CLEAN CATCH
[2016-09-29 03:42] LABS: URINE APPEARANCE CLEAR; URINE BILIRUBIN NEG (NEG); URINE BLOOD NEG (NEG); URINE COLOR YELLOW; URINE GLUCOSE NEG (NEG); URINE KETONE TRACE (NEG); URINE LEUKOCYTE ESTERASE TRACE (NEG); URINE NITRATE NEG (NEG); URINE PROTEIN NEG (NEG); URINE UROBILINOGEN 0.2 MG/DL (NEG)
[2016-09-29 03:44] LABS: CULTURE INDICATED? YES; URINE BACTERIA AUWI NEG (NEGATIVE); URINE SQUAMOUS EPITHELIAL CELL OCC /[HPF]
[2016-09-29 05:35] LABS: BASOPHIL# 0.1 X10e3 (0-0.3); BASOPHIL% 1.2 % (0-2.5); EOSINOPHIL# 0.1 X10e3 (0-0.7); EOSINOPHIL% 0.9 % (0.0-7.0); HEMATOCRIT 34.4 % (35.0-45.0); HEMOGLOBIN 11.1 gm/dL (12.0-16.0); LYMPHOCYTE# 1.8 X10e3 (1.0-3.5); LYMPHOCYTE% 15.4 % (17.0-45.0); MEAN CELL VOLUME 99.6 FL (83-96); MEAN CORPUSCULAR HGB CONC 32.2 g/dL (30-36); MONOCYTE# 0.9 X10e3 (0-1.0); MONOCYTE% 7.4 % (3.0-12.0); NEUTROPHIL# 8.7 X10e3 (1.5-7.1); NEUTROPHIL% 75.1 % (40-75); PLATELET COUNT 418 X10e3 (140-420); RED BLOOD COUNT 3.45 X10e (3.90-5.30); RED CELL DISTRIBUTION WIDTH 14.2 % (11.0-15.5); WHITE BLOOD COUNT 11.6 X10e3 (4.0-10.5)
[2016-09-29 05:41] LABS: DIFF IND NO
[2016-09-29 05:53] LABS: INR 2.6; PARTIAL THROMBOPLASTIN TIME 42.7 SECONDS (23.5-31.3); PROTHROMBIN TIME (PATIENT) 28.1 SECONDS (10.0-11.7)
[2016-09-29 06:01] LABS: CK TOTAL 32 IU/L (26-140)
[2016-09-29 06:33] LABS: ALBUMIN SERUM 2.2 g/dL (3.5-5.0); BILIRUBIN,TOTAL 0.5 mg/dL (0.2-2.0); BUN/CREATININE RATIO 12.5; CREATININE SERUM 0.8 mg/dL (0.6-1.4); GLOM FILT RATE Estimated 67.3 mL/min (>60); POTASSIUM 4.8 mmol/L (3.5-5.1); PROTEIN TOTAL SERUM 5.4 g/dL (6.0-8.3)
[2016-09-30 05:04] LABS: HEMATOCRIT 35.2 % (35.0-45.0); HEMOGLOBIN 11.2 gm/dL (12.0-16.0); MEAN CELL VOLUME 99.6 FL (83-96); MEAN CORPUSCULAR HEMOGLOBIN 31.8 PG (28-34); MEAN CORPUSCULAR HGB CONC 31.9 g/dL (30-36); MEAN PLATELET VOLUME 7.6 FL (6.5-11.5); RED BLOOD COUNT 3.53 X10e (3.90-5.30); RED CELL DISTRIBUTION WIDTH 14.4 % (11.0-15.5)
[2016-09-30 05:05] LABS: WHITE BLOOD COUNT 17.9 X10e3 (4.0-10.5)
[2016-10-02 05:55] LABS: CALCIUM SERUM 8.3 mg/dL (8.4-10.2); CREATININE SERUM 0.8 mg/dL (0.6-1.4); GLOM FILT RATE Estimated 67.3 mL/min (>60); POTASSIUM 4.3 mmol/L (3.5-5.1)
[2016-10-02 11:09] LABS: INR 4.4; PARTIAL THROMBOPLASTIN TIME 49.6 SECONDS (23.5-31.3); PROTHROMBIN TIME (PATIENT) 47.5 SECONDS (10.0-11.7)
[2016-10-03 05:14] LABS: HEMATOCRIT 33.4 % (35.0-45.0); HEMOGLOBIN 11.1 gm/dL (12.0-16.0); MEAN CELL VOLUME 97.7 FL (83-96); MEAN CORPUSCULAR HEMOGLOBIN 32.5 PG (28-34); MEAN CORPUSCULAR HGB CONC 33.2 g/dL (30-36); MEAN PLATELET VOLUME 7.4 FL (6.5-11.5); RED BLOOD COUNT 3.41 X10e (3.90-5.30); RED CELL DISTRIBUTION WIDTH 13.9 % (11.0-15.5); WHITE BLOOD COUNT 14.8 X10e3 (4.0-10.5)
[2016-10-03 05:27] LABS: INR 2.3; PARTIAL THROMBOPLASTIN TIME 42.3 SECONDS (23.5-31.3); PROTHROMBIN TIME (PATIENT) 24.8 SECONDS (10.0-11.7)
[2016-10-03 05:46] LABS: BUN/CREATININE RATIO 13.33; CALCIUM SERUM 8.3 mg/dL (8.4-10.2); CREATININE SERUM 0.9 mg/dL (0.6-1.4); GLOM FILT RATE Estimated 58.3 mL/min (>60); POTASSIUM 4.2 mmol/L (3.5-5.1)
[2016-10-03 15:27] LABS: BF TOTAL NUCLEATED CELL COUNT 1052 CMM (0-100); BODY FLUID APPEARANCE TURBID; BODY FLUID RBC <10000 CMM; BODY FLUID SOURCE PLEURAL
[2016-10-03 16:01] LABS: PROTEIN, BODY FLUID 3.9 gm/dL
[2016-10-04 05:47] LABS: HEMATOCRIT 35.1 % (35.0-45.0); HEMOGLOBIN 11.3 gm/dL (12.0-16.0); MEAN CELL VOLUME 98.5 FL (83-96); MEAN CORPUSCULAR HEMOGLOBIN 31.8 PG (28-34); MEAN CORPUSCULAR HGB CONC 32.2 g/dL (30-36); RED BLOOD COUNT 3.57 X10e (3.90-5.30); RED CELL DISTRIBUTION WIDTH 13.6 % (11.0-15.5); WHITE BLOOD COUNT 13.8 X10e3 (4.0-10.5)
[2016-10-04 05:57] LABS: INR 2.2; PROTHROMBIN TIME (PATIENT) 24.1 SECONDS (10.0-11.7)
[2016-10-04 06:18] LABS: CALCIUM SERUM 8.2 mg/dL (8.4-10.2); GLOM FILT RATE Estimated 51.4 mL/min (>60); POTASSIUM 3.9 mmol/L (3.5-5.1)
[2016-10-04] MEDS ORDERED: LASIX20 MG PO (14:41)
[2016-10-04] MEDS ORDERED: LISINOPRIL2.5 MG PO (14:42)
[2016-10-04] MEDS ORDERED: DOXYCYCLINE PO (14:44)
== END 2016-10-04 16:37 | disposition home health service (06) | DRG 871 ==
LOC: CED 15:03 → CEDOF 18:25 → CED 18:41 → CEDOF 19:53 → C3A PCU 19:53
PROVIDERS: Emergency Medicine; Family Medicine; Internal Medicine; Internal Medicine Cardiovascular Disease; Psychiatry & Neurology Behavioral Neurology & Neuropsychiatry; Radiology Diagnostic Radiology
PROC: B24BZZZ Ultrasonography of Heart with Aorta (ICD-10-PCS; 2016-09-29)
PROC: 0W9B3ZZ Drainage of Left Pleural Cavity, Percutaneous Approach (ICD-10-PCS; principal; 2016-10-02)
PROC: 30233L1 Transfusion of Nonautologous Fresh Plasma into Peripheral Vein, Percutaneous Approach (ICD-10-PCS; 2016-10-02)
DX: A41.9 Sepsis, unspecified organism (principal); J18.9 Pneumonia, unspecified organism; J96.21 Acute and chronic respiratory failure with hypoxia; I50.33 Acute on chronic diastolic (congestive) heart failure; E44.0 Moderate protein-calorie malnutrition; I27.2 Other secondary pulmonary hypertension; R13.10 Dysphagia, unspecified; I07.1 Rheumatic tricuspid insufficiency; F03.90 Unspecified dementia, unspecified severity, without behavioral disturbance, psychotic disturbance, mood disturbance, and anxiety; L89.612 Pressure ulcer of right heel, stage 2; Z68.23 Body mass index [BMI] 23.0-23.9, adult; R25.1 Tremor, unspecified; F41.9 Anxiety disorder, unspecified; R59.0 Localized enlarged lymph nodes; F32.9 Major depressive disorder, single episode, unspecified; E78.5 Hyperlipidemia, unspecified; Z88.2 Allergy status to sulfonamides; Z88.5 Allergy status to narcotic agent; Z88.1 Allergy status to other antibiotic agents; Z88.8 Allergy status to other drugs, medicaments and biological substances; M19.90 Unspecified osteoarthritis, unspecified site; Z87.891 Personal history of nicotine dependence; Z90.49 Acquired absence of other specified parts of digestive tract; Z80.0 Family history of malignant neoplasm of digestive organs; Z86.718 Personal history of other venous thrombosis and embolism; Z86.711 Personal history of pulmonary embolism; Z79.01 Long term (current) use of anticoagulants
CPT/HCPCS: 36415; 36600; 71010; 71250; 80048; 80053; 80076; 81003; 82550; 82553; 82803; 82945; 83605; 83615; 83880; 83986; 84157; 84443; 84484; 85025; 85027; 85610; 85730; 86900; 86901; 87040; 87070; 87086; 87205; 88108; 88305; 89051; 92526; 92610; 93005; 93306; 94640; 94760; 97110; 97116; 97163; 97167; 97530; 97535; 99285; G8978-GP; G8979-GP; G8987-GO; G8988-GO; G8996-GN; G8997-GN; G8998-GN; J0456; J0696; J1940; J2405; P9059

== ENCOUNTER 2016-10-16 18:27 | Inpatient (IN) | payer MEDICARE, BC ==
[~2016-10-16] VITALS: Ht 160 cm; Wt 53.6 kg
--- NOTE | ~2016-10-16 | XA203 ---
[facility] A Service of [facility] & [facility] RADIOLOGY TEXT RESULTS PATIENT: RAHUL AARON LOCATION: [facility] 330- : 31 UNIT #: [id number] AGE: [address]: Ozzie Peter MD SEX: F ORDER DR: [id number] [facility] [address] [place], [place] [address] [id number] I MR#: [id number] Acc #: [id number] NAME: RAHUL AARON : 1930 SEX: F STUDY DATE/TIME: 10/29/2016 13:32 [facility] STUDY DESCRIPTION: XA Thoracentesis Attending Physician: Ozzie Peter M.D. Ordering Physician: Pardeep Ramirez M.D. Primary Care Physician: Geovanny Malin Jr., M.D. MEDICAL IMAGING REPORT This report is preliminary unless electronic signature is present EXAM Ultrasound guided left thoracentesis. INDICATIONS Left pleural effusion. The risks, benefits and alternatives of the procedure discussed with the patient and informed consent was obtained. In the procedure room a time-out was performed confirming correct patient and procedure. All elements of maximum sterile-barrier technique utilized according guidelines appropriate for the procedure. TECHNIQUE/FINDINGS Ultrasound of the posterior thorax was performed demonstrating a large left pleural effusion. The overlying skin was prepped and draped in the usual sterile fashion. 1% lidocaine was utilized to anesthetize the skin and underlying subcutaneous tissues. Next, under ultrasound guidance a 5-Romanian Yueh catheter inserted into the pleural space on the left and 1050 mL of clear fluid was removed. Samples sent to the lab. Needle was removed and a sterile dressing was applied. No immediate complications. IMPRESSION Technically successful ultrasound guided left thoracentesis. Dictated by... Sanchez Barba M.D. THIS IS AN ELECTRONICALLY VERIFIED REPORT Sanchez Barba M.D. at 11/01/2016 4:44 PM CHRISTOPHE/tyree TD: 10/31/2016 09:30 JOB #: [id number] [facility] A Service of [facility] & [facility] RADIOLOGY TEXT RESULTS PATIENT: RAHUL AARON LOCATION: [facility] 330-01 : 31 UNIT #: [id number] AGE: [address]: Ozzie Peter MD SEX: F ORDER DR: MEDICAL IMAGING REPORT Page 1 of 1 COPY
--- NOTE | ~2016-10-16 | CR71 ---
[facility] A Service of [facility] RADIOLOGY TEXT RESULTS PATIENT: RAHUL AARON LOCATION: [facility] 330- : 31 UNIT #: [id number] AGE: [address]: Ozzie Peter MD SEX: F ORDER DR: [id number] [facility] [address] [place], [place] [address] [id number] I MR#: [id number] Acc #: [id number] NAME: RAHUL AARON : 1930 SEX: F STUDY DATE/TIME: 10/29/2016 13:48 [facility]: [facility] STUDY DESCRIPTION: CR Chest Single View Attending Physician: Ozzie Peter M.D. Primary Care Physician: Geovanny Malin Jr., M.D. MEDICAL IMAGING REPORT This report is preliminary unless electronic signature is present EXAM Portable chest 10/29/2016 HISTORY Shortness of breath status post thoracentesis today. Evaluate for pneumothorax. Respiratory failure. FINDINGS The heart is enlarged but stable compared with 10/28/2016. Left arm approach PICC line is unchanged. There are bilateral pleural effusions with bibasilar infiltrates or atelectasis. Improvement in aeration in the left upper lobe is noted. Mild pulmonary edema. No pneumothorax. IMPRESSION No evidence of pneumothorax following thoracentesis. Stable cardiomegaly and pulmonary edema compared with 10/28/2016. Improvement in aeration within the left lung. Dictated by... Rob Grier M.D. THIS IS AN ELECTRONICALLY VERIFIED REPORT Rob Grier M.D. at 10/30/2016 6:38 AM KRT/to TD: 10/29/2016 17:06 JOB #: [id number] MEDICAL IMAGING REPORT Page 1 of 1 COPY
--- NOTE | ~2016-10-16 | CR72 ---
[facility] A Service of [facility] & [facility] RADIOLOGY TEXT RESULTS PATIENT: RAHUL AARON LOCATION: [address]19 : 31 UNIT #: [id number] AGE: [address]: Ozzie Peter MD SEX: F ORDER DR: [id number] [facility] [address] [place], [place] [address] [id number] I MR#: [id number] Acc #: [id number] NAME: RAHUL AARON : 1930 SEX: F STUDY DATE/TIME: 10/25/2016 4:49 UNIT: [facility] ROOM: [facility] STUDY DESCRIPTION: CR Chest Single View Portable Attending Physician: Ozzie Peter M.D. Ordering Physician: Didier Packer M.D. Primary Care Physician: Geovanny Malin Jr., M.D. MEDICAL IMAGING REPORT This report is preliminary unless electronic signature is present EXAM Portable chest HISTORY Respiratory failure for 9 days. FINDINGS There has been no significant change compared to 10/23/2016. Persistent bilateral pulmonary infiltrates, more extensive on the left, and small pleural effusions are again demonstrated. Stable mild cardiac enlargement and mild central vascular congestion. Support devices are in satisfactory position. Dictated by... Joel Melendez M.D. THIS IS AN ELECTRONICALLY VERIFIED REPORT Joel Melendez M.D. at 10/25/2016 10:07 PM MALU/mariah TD: 10/25/2016 08:11 JOB #: [id number] MEDICAL IMAGING REPORT Page 1 of 1 COPY
--- NOTE | ~2016-10-16 | CT57 ---
[facility] A Service of [facility] RADIOLOGY TEXT RESULTS PATIENT: RAHUL AARON LOCATION: [facility] 330-01 : 31 UNIT #: [id number] AGE: [address]: Ozzie Peter MD SEX: F ORDER DR: [id number] [facility] [address] [place], [place] [address] [id number] I MR#: [id number] Acc #: [id number] NAME: RAHUL AARON : 1930 SEX: F STUDY DATE/TIME: 10/23/2016 13:44 UNIT: [facility] ROOM: [facility] STUDY DESCRIPTION: CT Chest Wo Cont Attending Physician: Ozzie Peter M.D. Ordering Physician: Didier Packer M.D. Primary Care Physician: Geovanny Malin Jr., M.D. MEDICAL IMAGING REPORT This report is preliminary unless electronic signature is present EXAM Chest CT without contrast HISTORY Shortness breath for the past week. TECHNIQUE Axial images were obtained without contrast evaluated at lung and mediastinal windows. This CT exam was performed with one or more of the following radiation dose reduction techniques: automatic exposure control, adjustment of mA and/or kV according to patient size, and iterative reconstruction. COMPARISON 10/02/2016. FINDINGS Chest images at mediastinal window again show a large left pleural effusion. The volume of pleural fluid on the left shows little change from the previous examination. There is a small right effusion. Apparent gastric pull-through noted. No evidence of gastric obstruction. Prominent subcarinal lymph nodes are again seen but unchanged from the previous scan. No new or enlarging masses are seen in the mediastinum. Images at lung window show patchy infiltrate in the right [id number] lung field. Since the previous examination, aeration in the right lower lobe has improved. No new infiltrates are seen on either side. IMPRESSION Large left effusion and small right effusion have not changed significantly. Consolidative changes at the right lung base show slight [facility]S. [facility] A Service of [facility] RADIOLOGY TEXT RESULTS PATIENT: RAHUL AARON LOCATION: [facility] 330-01 : 31 UNIT #: [id number] AGE: [address]: Ozzie Peter MD SEX: F ORDER DR: improvement and infiltrates show perhaps slight improvement since the previous examination. No new infiltrates are seen since the previous scan. The stomach is above the diaphragm, either secondary to previous surgery or a large hiatal hernia. This is unchanged. Dictated by... Jerome Neumann M.D. THIS IS AN ELECTRONICALLY VERIFIED REPORT Jerome Neumann M.D. at 10/31/2016 2:02 PM MAGDIEL/may TD: 10/23/2016 22:13 JOB #: [id number] MEDICAL IMAGING REPORT Page 1 of 1 COPY
--- NOTE | ~2016-10-16 | CO ---
Unit #: [id number] #: [id number] Patient: RAHUL NOLEN [id number]. [place], [place] [address] [id number] I MR#: [id number] NAME: RAHUL NOLEN ROOM: 312 Age: 86 Sex: F Admission Date: 10/16/2016 : 1930 Attending Physician: Pardeep Alvarado M.D. Primary Care Physician: Geovanny Malin Jr., M.D. CONSULTATION REPORT HISTORY OF PRESENT ILLNESS Ms. Nolen is an 86-year-old white female, well known to me from last admission earlier this month. At that time, she was admitted with aspiration pneumonia and a large left pleural effusion. Effusion was tapped and reveal, it was exudative in nature. Flow cytometry was negative for monoclonal B-cells. There were atypical cells observed. She was treated for pneumonia with antibiotics with improvement. She was placed on a dysphagia diet for her dysphagia. She was felt to have some degree of diastolic congestive heart failure, treated with diuresis. She was discharged home. Apparently, she is continued to be somewhat short of breath. A visiting nurse noted low oxygen saturations. She had also been coughing after eating. In fact when she was seen in the emergency room, she still had retained food particles in the back of her throat from the eating before. Chest x-ray in the emergency room showed increased bilateral infiltrates and effusions. BNP was normal. She has currently undergone a video swallow study and has significant aspiration and alternative feedings has been recommended. She has seen Dr. Morillo in the past for esophageal stricture. She has a tortuous esophagus, some esophageal stricture, and a large hiatal hernia with intrathoracic stomach I believe. 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 History of acute respiratory failure and diastolic dysfunction and aspiration pneumonia last admission. She has mediastinal lymphadenopathy with negative flow cytometry, but atypical cells noted on left side thoracentesis. She has a history of chronic pain, followed by Dr. Campa. History of anxiety and depression. History of Parkinson disease, currently under treatment by Dr. Chowdhury, medicines just added. She has history of esophageal stricture, presbyesophagus, esophageal stricture, she is status post splenectomy, cataract extraction, cholecystectomy, hemorrhoidectomy, appendectomy, bilateral knee surgery. ALLERGIES Sulfa, codeine, clavulanic acid, Cipro, , and Prevacid. HOME MEDICATIONS Oxycodone, Pravachol, Celexa, Coumadin, Ativan, multivitamins, doxycycline, and lisinopril. FAMILY HISTORY Colon cancer. Unit #: [id number] #: [id number] Patient: RAHUL NOLEN SOCIAL HISTORY Lives with her . Remote tobacco use. No alcohol. REVIEW OF SYSTEMS Difficult to obtain, the patient confused. PHYSICAL EXAMINATION GENERAL: White female, in no distress. VITAL SIGNS: Blood pressure is 99/60, pulse is 86, respiratory rate 16, temperature 99.1. HEENT: Normocephalic and atraumatic. Pupils are equal, round, and reactive. Sclerae nonicteric. Nasal passages patent. Posterior pharynx clear. Mucous membranes are somewhat dry. NECK: Supple. Trachea midline. No cervical or supraclavicular lymphadenopathy. LUNGS: Reveal scattered rhonchi. CARDIAC: Regular rate and rhythm. Could not appreciate murmur, rub, or gallop. ABDOMEN: Nontender. Bowel sounds present. No hepatosplenomegaly. EXTREMITIES: With trace edema. No clubbing. No cyanosis. NEUROLOGIC: Awake and oriented to person. Moves all extremities symmetrically. Tremor noted. DIAGNOSTIC STUDIES LABORATORY RESULTS: Reviewed. BMP unremarkable. PT/INR is 2.1. White count 14.5, hematocrit 11.9. IMAGING STUDIES: Chest x-ray, personally reviewed as noted. IMPRESSION 1. Recurrent aspiration. 2. Acute respiratory failure. 3. Exudative left pleural effusion. 4. Parkinson disease. 5. Other problems as mentioned above. PLAN Broad-spectrum antibiotics for aspiration pneumonia. Dr. Morillo to see for alternative feeding. Maximize Parkinson's medication to see if that might improve swallowing mechanism. Further recommendations pending this. Dictated by... Stephen Moya/hal TD: 10/18/2016 03:18 JOB #: [id number] CC: Geovanny Malin Jr., M.D. Unit #: [id number] #: [id number] Patient: RAHUL NOLEN CONSULTATION REPORT Page 1 of 1 X Didier Packer MD CONSULTATION REPORT
--- NOTE | ~2016-10-16 | DS ---
Unit #: [id number] #: [id number] Patient: RAHUL AARON [id number] [address] [place], [place] [address] [id number] I MR#: [id number] NAME: RAHUL AARON ROOM: 330 Age: 86 Sex: F Admission Date: 10/16/2016 : 1930 Discharge Date: 11/02/2016 Attending Physician: Ozzie Peter M.D. Primary Care Physician: Geovanny Malin Jr., M.D. DISCHARGE SUMMARY REASON FOR ADMISSION Dyspnea, cough. HISTORY OF PRESENT ILLNESS/HOSPITAL COURSE Patient is an 86-year-old female, prior history of pulmonary embolism, DVT, cognitive impairment. Was admitted secondary to increased dyspnea/respiratory distress. She had been recently admitted to our particular hospital from September 28 to October 04 secondary to acute hypoxic respiratory failure. At that point in time strong consideration and concern was for possible underlying aspiration. Through that hospital course she had undergone thoracentesis, and there was some concern about possible mediastinal lymphadenopathy and concern for underlying lymphoma. The fluid from that particular thoracentesis did show atypical cells. Since that hospitalization, patient had progressively gotten more short of breath. Her O2 saturations were found to be low while at home, and subsequently she presented to the hospital for further evaluation. Initial chest x-ray showed findings consistent with bilateral infiltrates, increasing effusions, and her BNP initially was normal. After initial part of hospital course, patient was placed on routine IV antibiotics. Video function swallow study was performed, which did show strong consideration for aspiration, and therefore, recommendation was made for PEG tube placement. Patient underwent PEG tube placement on October 19, 2016, but acutely afterward she decompensated and required intubation, and consultation was subsequently placed to pulmonary services, and patient was placed in the ICU. Through ICU care under the care of Dr. Packer and associates, patient was gradually weaned off of ventilator and placed on O2 via nasal cannula. Her prior medical history including ITP, DVT, PE, prior history of IVC filter, hvhmtspm-sa-gxnlrq protein and calorie malnutrition was all continued to be followed through hospital/ICU course. Once she was taken off of ventilator, she became more stable and was subsequently transferred to telemetry floor. Initially on telemetry floor for the past 48 to 72 hours she had been relatively stable; however, she began developing increased temperatures and/or fevers once again, and her Unit #: [id number] #: [id number] Patient: RAHUL AARON overall condition began to decompensate. Family requested the patient not be intubated again, and subsequently rapid response team was called several hours ago. Patient has acutely decompensated, and she appears to be in distress despite maximal medical management that has been given. At this point in time and after review and discussion with the patient's family, consideration of this hospital stay, prolonged, as well as chronic deconditioning, endstage dementia, as well as recent hospital admission, decision has been made for comfort care measures only. We will initiate these measures for now, and Hospice services will evaluate patient in the morning. CURRENT CLINICAL DIAGNOSES (as of 11/01/2016) 1. Septic shock postoperative percutaneous endoscopic gastrostomy tube placement. 2. Dysphagia status post percutaneous endoscopic gastrostomy tube place. 3. Acute hypoxic respiratory failure on admission, as well as postoperative percutaneous endoscopic gastrostomy tube placement. 4. Aspiration pneumonia, present on admission. 5. 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 6. Prior history of pulmonary embolism. 7. Prior history of deep vein thrombosis. 8. Prior history of inferior vena cava filter. 9. Hypotension postoperative. 10. Pressure ulcer, healing, coccyx, which was present on admission. 11. Mlywbkab-lz-jdvblk protein/caloric malnutrition. 12. Bilateral pleural effusion status post thoracentesis, left side, with studies currently pending. 13. Idiopathic thrombocytopenia. 14. Diastolic dysfunction. 15. Chronic pain syndrome. PLAN Comfort care measures only. Hospice consultation. All family members are in agreement and well aware of patient's prognosis and/or current state. All parties are in agreement. NOTE: Time spent in the coordination of this summary, discussion with family is greater than 55 minutes. Dictated by... Stephen Mcnulty TD: 11/06/2016 16:06 JOB #: [id number] Unit #: [id number] #: [id number] Patient: RAHUL AARON DISCHARGE SUMMARY Page 1 of 1 X Ozzie Peter MD X DISCHARGE SUMMARY
--- NOTE | ~2016-10-16 | CR72 ---
[facility] A Service of [facility] RADIOLOGY TEXT RESULTS PATIENT: RAHUL AARON LOCATION: [address]19 : 31 UNIT #: [id number] AGE: [address]: Ozzie Peter MD SEX: F ORDER DR: [id number] [facility] [address] [place], [place] [address] [id number] I MR#: [id number] Acc #: [id number] NAME: RAHUL AARON : 1930 SEX: F STUDY DATE/TIME: 10/20/2016 5:41 UNIT: [facility] ROOM: [facility] STUDY DESCRIPTION: CR Chest Single View Portable Attending Physician: Pardeep Alvarado M.D. Ordering Physician: Didier Packer M.D. Primary Care Physician: Geovanny Malin Jr., M.D. MEDICAL IMAGING REPORT This report is preliminary unless electronic signature is present REVISED REPORT SEE ADDENDUM EXAM Single view chest INDICATIONS Shortness of air and cough, 2-3 day duration. FINDINGS Single portable AP view of the chest compared to 10/19/2016, and 10/18/2016. The enteric tube remains in place. The heart is enlarged. Bilateral pleural effusions, left greater than right is similar to the prior study. There is increased interstitial markings in both lungs. There is a large amount of lucency in the upper abdomen. This potentially represent pneumoperitoneum. Dedicated decubitus radiographs are recommended of the abdomen. IMPRESSION 1. No change in the chest. Patient has bilateral pleural effusions as well as some bilateral interstitial prominence. 2. Questionable lucency in the upper abdomen is nonspecific. This could be artifact or related to pneumoperitoneum. Decubitus radiographs of the abdomen are recommended to further evaluate. Dictated by... Angel Pitts M.D. THIS IS AN ELECTRONICALLY VERIFIED REPORT Angel Pitts M.D. at 10/20/2016 2:52 PM RAZIA/segundo TD: 10/20/2016 14:35 STS[facility] A Service of [facility] RADIOLOGY TEXT RESULTS PATIENT: RAHUL AARON LOCATION: [address] : 31 UNIT #: [id number] AGE: [address]: Ozzie Peter MD SEX: F ORDER DR: JOB #: [id number] ADDENDUM The results of the study were discussed with the ICU nurse, Marysol Larsen, at 0643 on 10/20/2016. Dictated by... Angel Pitts M.D. THIS IS AN ELECTRONICALLY VERIFIED REPORT Angel Pitts M.D. at 10/24/2016 9:23 AM RAZIA/demetris TD: 10/20/2016 14:38 JOB #: [id number] MEDICAL IMAGING REPORT Page 1 of 1 COPY
--- NOTE | ~2016-10-16 | CT4 ---
[facility] A Service of [facility] & [facility] RADIOLOGY TEXT RESULTS PATIENT: RAHUL AARON LOCATION: A 330- : 31 UNIT #: [id number] AGE: [address]: Ozzie Peter MD SEX: F ORDER DR: [id number] [facility] [address] [place], [place] [address] [id number] I MR#: [id number] Acc #: [id number] NAME: RAHUL AARON : 1930 SEX: F STUDY DATE/TIME: 10/28/2016 16:07 UNIT: A U ROOM: 330 STUDY DESCRIPTION: CT Abd and Pelv Wo Cont Attending Physician: Ozzie Peter M.D. Ordering Physician: Ozzie Peter M.D. Primary Care Physician: Geovanny Malin Jr., M.D. MEDICAL IMAGING REPORT This report is preliminary unless electronic signature is present EXAM Abdomen and pelvis CT no contrast 10/28/2016 INDICATION Diffuse abdominal pain 2 days. Acute onset of renal failure 3 days ago. Generalized abdominal pain for 2 days with complex appearing fluid in the left upper quadrant of the abdomen of unknown etiology on recent ultrasound report. No history of malignancy. TECHNIQUE Noncontrast CT of the abdomen and pelvis was performed. Correlation is made with chest CT 10/23/2016. This CT examination was performed with one or more of the following radiation dose reduction techniques: automatic exposure control, adjustment of mA and/or kV according to patient size, and iterative reconstruction. FINDINGS CT ABDOMEN: Exam degraded by noncontrast technique. Included lung bases demonstrate a large left-sided effusion and complete atelectasis of the left lower lobe. There is consolidation in the lingula and right lower lobe as well. Findings on the left are unchanged. Consolidation in the right lower lobe appears worse than on the prior study. Intrathoracic stomach again noted. No pericardial effusion. Aorta demonstrates atherosclerotic change but no aneurysm. IVC filter present. Splenule present in the left upper quadrant. The pancreas is markedly atrophic. Adrenal glands stable with probable hyperplasia of the left adrenal gland unchanged. Gallbladder either surgically absent or contracted. There is a low-attenuation lesion centrally within the liver likely representing a cyst. It measures only about 8 mm. G-tube in the stomach. Kidneys demonstrate no hydronephrosis or radiopaque stone. Conglomeration of probable lymph nodes in the left retroperitoneal station measures 17 x 18 mm which is abnormal. Alternatively this could be a STS. [facility] A Service of [facility] RADIOLOGY TEXT RESULTS PATIENT: RAHUL AARON LOCATION: C3A 330-01 : 31 UNIT #: [id number] AGE: [address]: Ozzie Peter MD SEX: F ORDER DR: confluence of vessels but this is impossible to discern given noncontrast technique. Additional smaller probable lymph nodes present in the retroperitoneum. CT PELVIS: Bladder decompressed by David catheter. No drainable fluid collection in the pelvis. There is leiomyomatous change of the uterus. There is diverticulosis. No evidence of bowel obstruction. Appendix not clearly identified but no secondary sign of appendicitis. Generalized anasarca. No inguinal adenopathy or fluid collection. No evidence of free air. There is no distinct mass or drainable fluid collection in the left upper quadrant. Osseous structures demonstrate spinal degenerative change and osteoporosis. IMPRESSION 1. There is no drainable fluid collection or focal mass in the left upper quadrant. Incidental splenule in the left upper quadrant. 2. Large left-sided effusion. Consolidation in the left lower lobe lingula and worsening consolidation in the right lower lobe. Correlate for signs or symptoms of pneumonia. 3. Intrathoracic stomach without new complicating features. G-tube present. 4. There is no evidence of bowel obstruction. 5. Findings suspicious for retroperitoneal adenopathy to the left of midline. This is difficult to discern or further characterize given noncontrast technique. 6. Appendix not identified. No distinct secondary sign of appendicitis. 7. Generalized anasarca. 8. Diverticulosis. 9. Osteoporosis and degenerative change of the thoracolumbar spine. Dictated by... Trace Dennis M.D. THIS IS AN ELECTRONICALLY VERIFIED REPORT Trace Dennis M.D. at 10/29/2016 11:25 PM CARO/stacy TD: 10/29/2016 07:37 JOB #: [id number] MEDICAL IMAGING REPORT Page 1 of 1 COPY
--- NOTE | ~2016-10-16 | HP ---
Unit #: [id number] #: [id number] Patient: RAHUL AARON [id number] [facility] [place], [place] [address] [id number] I MR#: [id number] NAME: RAHUL AARON ROOM: 312 Age: 86 Sex: F Admission Date: 10/16/2016 : 1930 Attending Physician: Lucy Santos M.D. Primary Care Physician: Geovanny Malin Jr., M.D. HISTORY AND PHYSICAL CHIEF COMPLAINT Dyspnea, cough, worsening chest x-ray. HISTORY This pleasant 86-year-old female with PE, DVT, cognitive impairment is admitted for worsening shortness of breath. Patient was admitted to this facility 09/28/2016 through 10/04/2016 for acute hypoxic respiratory failure. She was treated for pneumonia, and I believe she was thought to have problems with aspiration. An echocardiogram was performed showing an ejection fraction of 50% to 55%, and it was thought patient had an element of diastolic dysfunction. She, however, did not improved much with antibiotics nor with diuresis. Finally underwent thoracentesis with 1300 of fluid removed. The fluid was consistent with exudative pleural effusion. She was noted on CT scan to have mediastinal adenopathy. There was concern that this could possibly represent lymphoma. Flow cytometry currently is pending. Immunophenotyping failed to reveal monoclonal B cell population. The fluid from the thoracentesis showed atypical cells. Her blood, sputum and thoracentesis fluid were negative for bacterial growth. Her family tells me that since her recent hospitalization she had gotten progressively short of breath, perhaps worse over the past week with a cough productive of yellow sputum. She does cough after drinking clear liquids. No definite fever, sweats, or chills. Today her O2 sats were noted to be low by the therapist who went to the patient's home. While she was sleeping they could not even obtain an O2 sat, but this gradually increased to about 85% when she was awake. She was brought to this emergency department tonight afebrile with a blood pressure of 99/56, her O2 saturation 100% on 2 L of oxygen. On examination she does have some rhonchi. Also on examination she does have some retained food particles in her mouth from when she was chewing earlier. I do note that there was made mention of possible aspiration during last hospitalization. At this time the patient is drinking clear liquids. Her tells me that she does cough after drinking clear liquids. Chest x-ray is worse with increasing infiltrates bilaterally and increasing effusions. BNP is normal. PAST MEDICAL HISTORY 1. 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 2. 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 3. Recent admission 09/28/2016 for acute hypoxic respiratory failure, possibly related to diastolic dysfunction, possibly related to pneumonia. Patient improved after a thoracentesis was performed. Unit #: [id number] #: [id number] Patient: RAHUL AARON The fluid was exudative. Cytology on the fluid revealed atypical cells. 4. Mediastinal adenopathy with flow cytometry pending. 5. Chronic pain due to DJD on oxycodone followed by Dr. Campa. 6. Anxiety and depression. 7. 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 8. History of esophageal stricture. 9. 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 10. Splenectomy. 11. Cataract extraction. 12. Cholecystectomy. 13. Hemorrhoidectomy. 14. Appendectomy. 15. Bilateral knee surgery. ALLERGIES Sulfa, codeine, clavulanic acid, Cipro, omeprazole, and Prevacid. Of note, the patient currently is taking omeprazole. She is not allergic to penicillin. HOME MEDICATIONS Oxycodone 10 mg 5 tablets daily; Pravachol 20 mg daily; Celexa 20 mg daily; omeprazole 40 mg b.i.d.; Coumadin; I believe this is 1.25 mg daily; Ativan 1 mg daily as needed; multivitamin daily; Lasix 20 mg b.i.d.; patient finished a course of doxycycline; lisinopril 2.5 mg daily. FAMILY HISTORY Colon cancer. SOCIAL HISTORY The patient lives with her . Remote history of tobacco use, does not drink alcohol. REVIEW OF SYSTEMS Difficult to obtain as patient is pleasantly confused. PHYSICAL EXAMINATION GENERAL: Pleasantly confused 86-year-old frail appearing female who currently is in no acute distress. VITAL SIGNS: Temperature 98.3, pulse 87, respirations 16, blood pressure 99/56, O2 saturation is 100% on 2 L of oxygen. HEENT: Eyes - PERRLA, extraocular muscles are intact. Pharynx is benign. There is some retained food particles in the patient's mouth however. Patient has her own bottom teeth but uses dentures for the top. NECK: Supple without adenopathy or thyromegaly. CHEST: Chest reveals some rhonchi. CARDIAC: Normal S1 and S2 without definite murmur. ABDOMEN: Bowel sounds are present, no hepatosplenomegaly tenderness or masses. EXTREMITIES: With mild edema. NEUROLOGIC: Patient is oriented to person only. Her cranial nerves are intact. She is generally weak and needs help just to sit up. Does have some mild tremor noted. DIAGNOSTIC STUDIES ADMISSION LABS: Hematocrit is 35.4, white blood count is 12.7, platelet count is 481. Cardiac markers are negative. INR is 2.2. SMA 12 - BUN Unit #: [id number] #: [id number] Patient: SELVAGE,RAHUL 24, sodium 134, chloride 96, albumin 2.6, BNP is normal. IMAGING STUDIES: Chest x-ray - increasing bilateral infiltrates, large hiatal hernia increased pleural effusions. Sinus rhythm rate 80, nonspecific ST wave abnormalities. ASSESSMENT 1. Increasing dyspnea with acute hypoxic respiratory failure with worsening chest x-ray findings. I suspect the patient could have chronic aspiration. However, other causes such as lymphoma has not been completely ruled out. 2. Mediastinal adenopathy noted on recent admission, flow cytometry is pending. 3. Increasing pleural effusions. 4. BNP is normal. The patient has a normal ejection fraction. Recent thoracentesis revealed exudative pleural effusion with atypical cells noted. 5. ITP status post splenectomy. 6. Anticoagulated status post IVC filter or DVT and PE with a therapeutic INR. 7. Chronic pain on oxycodone. 8. 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 9. History of esophageal stricture and presbyesophagus. 10. Anxiety and depression. PLANS 1. Cefepime and clindamycin with one dose of vancomycin. 2. Supplemental oxygen, pulmonary to see in consultation. 3. Xopenex mini-nebs. 4. Decreased narcotics. I did discuss with the son and the patient is frail and has lost weight, likely is not tolerating high dose narcotics. 5. Notify oncology of patient's admission. 6. Will ask speech therapy to see again. And modify diet to a soft diet with thickened liquids. 7. Further workup and consultants depending on above. 8. Patient is a full code. Dictated by Stephen Elias/ts TD: 10/17/2016 05:00 JOB #: [id number] HISTORY AND PHYSICAL Page 1 of 1 X Lucy Santos MD X HISTORY AND PHYSICAL
--- NOTE | ~2016-10-16 | CR72 ---
[facility] A Service of [facility] & [facility] RADIOLOGY TEXT RESULTS PATIENT: RAHUL AARON LOCATION: [address]19 : 31 UNIT #: [id number] AGE: [address]: Ozzie Peter MD SEX: F ORDER DR: [id number] [facility] [address] [place], [place] [address] [id number] I MR#: [id number] Acc #: [id number] NAME: RAHUL AARON : 1930 SEX: F STUDY DATE/TIME: 10/22/2016 23:00 UNIT: [facility] ROOM: [facility] STUDY DESCRIPTION: CR Chest Single View Portable Attending Physician: Ozzie Peter M.D. Ordering Physician: Pardeep Alvarado M.D. Primary Care Physician: Geovanny Malin Jr., M.D. MEDICAL IMAGING REPORT This report is preliminary unless electronic signature is present EXAM Portable chest. HISTORY PICC placement today. FINDINGS Left arm approach PICC extends to at least the mid SVC, but its tip is obscured by overlying monitor lead. ETT tip is 5 cm above the paz. Moderate-sized left pleural effusion and small right pleural effusion with dense consolidation or atelectasis in the lung bases and moderate infiltrate or atelectasis in the left mid lung. Dictated by... Joel Melendez M.D. THIS IS AN ELECTRONICALLY VERIFIED REPORT Joel Melendez M.D. at 10/23/2016 10:26 PM DFL/gz TD: 10/23/2016 11:34 JOB #: [id number] MEDICAL IMAGING REPORT Page 1 of 1 COPY
--- NOTE | ~2016-10-16 | EKG ---
PATIENT: RAHUL AARON UNIT #: [id number] Ventricular Rate: 88 BPM Atrial Rate: 88 BPM P-R Interval: 122 ms QRS Duration: 74 ms Q-T Interval: 368 ms QTC Calculation(Bezet): 445 ms P Murray: 15 degrees Calculated R Murray: 60 degrees Calculated T Murray: 46 degrees Diagnosis Line: Normal sinus rhythm Diagnosis Line: Low voltage QRS Diagnosis Line: Borderline ECG Diagnosis Line: When compared with ECG of 16-OCT-2016 19:11, Diagnosis Line: No significant change was found Diagnosis Line: Confirmed by KVNG WETZEL MD ([id number]) on Diagnosis Line: 10/23/2016 4:48:32 PM INTERPRETING MD: JOSE EDUARDO
--- NOTE | ~2016-10-16 | CR3 ---
[facility] A Service of [facility] & [facility] RADIOLOGY TEXT RESULTS PATIENT: RAHUL AARON LOCATION: [address]19 : 31 UNIT #: [id number] AGE: [address]: Ozzie Peter MD SEX: F ORDER DR: [id number] [facility] [address] [place], [place] [address] [id number] I MR#: [id number] Acc #: [id number] NAME: RAHUL AARON : 1930 SEX: F STUDY DATE/TIME: 10/20/2016 7:14 UNIT: [facility] ROOM: [facility] STUDY DESCRIPTION: CR Abdomen Decubitus Attending Physician: Pardeep Alvarado M.D. Ordering Physician: Pardeep Alvarado M.D. Primary Care Physician: Geovanny Malin Jr., M.D. MEDICAL IMAGING REPORT This report is preliminary unless electronic signature is present EXAM CR abdomen decubitus. HISTORY Free air in abdomen today. Patient in CCU on vent. TECHNIQUE Right and left decubitus radiographs of the abdomen are presented. COMPARISON Comparison to chest radiograph 10/20/2016, 10/19/2016. FINDINGS Findings discussed directly with patient's primary care nurse, Babatunde, at the time of this dictation. Efforts underway to contact Dr. Morillo regarding findings as well. Chest radiograph earlier today raised the possibility of pneumoperitoneum. The decubitus radiographs of the abdomen show evidence of pneumoperitoneum with free air under right hemidiaphragm on the left decubitus radiograph. Free air seen adjacent to colon in the left hemidiaphragm on the right lateral decubitus radiograph. According to patient's nurse, the patient is status post PEG placement yesterday. The free air could be an acceptable postoperative consequence of PEG placement. Please correlate with patient's clinical status and exact nature of operative intervention. If it would assist in patient management, the abdomen and pelvis could be further evaluated with CT examination. There is residual contrast material in colon. Evidence of colonic diverticulosis. No evidence of ileus or obstruction. Inferior vena cava filter in place. No change. Extensive degenerative change in spine with marked dextroscoliosis of the lumbar spine. ADDENDUM Findings were discussed directly by telephone with Dr Morillo at 0800 hours, [facility] A Service of [facility] RADIOLOGY TEXT RESULTS PATIENT: RAHUL AARON LOCATION: [address] [address]- : 31 UNIT #: [id number] AGE: [address]: Ozzie Peter MD SEX: F ORDER DR: 10/20/2016. Dictated by... Geovanny Ba M.D. THIS IS AN ELECTRONICALLY VERIFIED REPORT Geovanny Ba M.D. at 10/23/2016 12:58 PM JAZMYN/dory TD: 10/20/2016 15:52 JOB #: [id number] MEDICAL IMAGING REPORT Page 1 of 1 COPY
--- NOTE | ~2016-10-16 | A ---
[facility] Nutrition Therapy DATE: 10/21/16 Patient: RAHUL AARON Physician: GIANNA Address: [address] [place] [address] ROAD Room/Bed: [address], Zip: [place] [address] Admit Date: 10/16/16 Date of : 31 Height: 5 3 Weight: 136 62 NUTRITIONAL ASSESSMENT: REASON: C/S- TPN INDICATION, NUTRITIONAL NEEDS Assessment: PATIENT HAD A GASTROGRAPHY COMPLETED YESTERDAY D/T FREE AIR IN ABDOMEN/POSSIBLE PEG LEAK. PATIENT WAS NOT FOUND TO HAVE ANY LEAKS. TPN IS NOT INDICATED ATT. START ENTERAL NUTRITION ONCE MEDICALLY FEASIBLE. Recommendations: 1. TPN NOT INDICATED. RECOMMEND TO START ENTERAL NUTRITION OF JEVITY 1.5 WITH A GOAL RATE OF 45ML/HR. ONCE GOAL RATE MET RECOMMEND FREE WATER FLUSHES OF 200ML QID OR PER MD. THIS PROVIDES 1620KCAL, 1080ML, AND 69GM PRO. Respectfully, BRANDEE MACIAS, RD, LD Food and Nutritional [facility] cc: client file
--- NOTE | ~2016-10-16 | CR67 ---
[facility] A Service of [facility] & [facility] RADIOLOGY TEXT RESULTS PATIENT: RAHUL AARON LOCATION: [facility] CICCU3-19 : 31 UNIT #: [id number] AGE: [address]: Pardeep Alvarado MD SEX: F ORDER DR: [id number] [facility] [address] [place], [place] [address] [id number] I MR#: [id number] #: [id number] NAME: RAHUL AARON : 1930 SEX: F STUDY DATE/TIME: 10/18/2016 16:47 UNIT: C3A PCU ROOM: [facility] STUDY DESCRIPTION: CR Chest Decubitus Jose Antonio Attending Physician: Pardeep Alvarado M.D. Ordering Physician: Didier Packer M.D. Primary Care Physician: Geovanny Malin Jr., M.D. MEDICAL IMAGING REPORT This report is preliminary unless electronic signature is present EXAM Bilateral chest decubitus images, 10/18/2016 COMPARISON Single view chest dated 10/16/2016 HISTORY Shortness or air, chest pain from 10/16/2016 FINDINGS Right and left lateral decubitus views were obtained. There is layering mild left-sided pleural effusion with associated alveolar opacity suggestive of infiltrate/atelectasis in the lung base. No significant pleural effusion is noted along the right side. Minimal effusion cannot be excluded. There is prominence of reticulonodular opacities in bilateral mid to lower lung zones, stable when compared to the prior study from 2 days ago. There is borderline size to mild cardiomegaly. No obvious pneumothorax. Diffuse bony osteopenia is present. Dictated by... Luis Armando Vicente M.D. THIS IS AN ELECTRONICALLY VERIFIED REPORT Luis Armando Vicente M.D. at 10/19/2016 6:25 PM CPR/ljd TD: 10/18/2016 22:42 JOB #: [id number] MEDICAL IMAGING REPORT Page 1 of 1 COPY
--- NOTE | ~2016-10-16 | EKG ---
PATIENT: RAHUL AARON UNIT #: [id number] Ventricular Rate: 79 BPM Atrial Rate: 79 BPM P-R Interval: 126 ms QRS Duration: 68 ms Q-T Interval: 396 ms QTC Calculation(Bezet): 454 ms P Carson: 20 degrees Calculated R Carson: 8 degrees Calculated T Carson: -24 degrees Diagnosis Line: Normal sinus rhythm with sinus arrhythmia Diagnosis Line: Nonspecific ST abnormality Diagnosis Line: Abnormal ECG Diagnosis Line: When compared with ECG of 28-SEP-2016 15:33, Diagnosis Line: No significant change was found Diagnosis Line: Confirmed by KVNG WETZEL MD ([id number]) on Diagnosis Line: 10/16/2016 10:50:50 PM INTERPRETING MD: JOSE EDUARDO
--- NOTE | ~2016-10-16 | A ---
[facility] Nutrition Therapy DATE: 10/20/16 Patient: RAHUL AARON Physician: GIANNA Address: [address] [place] [address] ROAD Room/Bed: [address], Zip: [place] [address] Admit Date: 10/16/16 Date of : 31 Height: 5 3 Weight: 134 61 NUTRITIONAL ASSESSMENT: REASON: NPO, intubated, consult re: enteral nutrition recommendations Admittin86 y/o female admitted with aspiration PNA PMH: chronic pain, DJD, anxiety, depression, appy, gibran, PE, DVT, cognitive impairment, esophageal stricture, dysphagia Anthropometrics: Ht: 63", admission weight: 51.4 kg, current wt: 61 kg, BMI: 20 (normal; based on admission weight) Average of weights: 56.2 kg Labs: Mg 1.3, GFR 58.3 Meds: IV Abx, PPI, IVF, Ian I/O & Bowel function: BM 10/19, PEG to gravity Skin Integrity: Puncture procedure site L abdomen, healed pressure ulcer coccyx Estimated Nutrition Needs: 9029-1558 kcals/day (25-30 kcals/kg; based on average weight of 56.2kg) 56-67 g protein/day (1-1.2 g/kg; based on average weight of 56.2kg) Fluids consistent with kcal needs or per MD Assessment: Chart reviewed, events noted. Patient transferred from after having a PEG placed due to dysphagia, remains intubated at this time. She will have a gastrography today due to free air in her abdomen to confirm proper PEG placement. If no issues with her PEG, enteral nutrition will be initiated. She is alert and following simple commands however the team is questioning possible Parkinson's disease. She scored 0 points on the malnutrition risk screening. She is not appropriate for RD interview at this time. See recs below, will follow hospital course. Dx: Inadequate energy intake r/t dysphagia AEB NPO, PEG, need for enteral nutrition. Intervention: EN recs as stated below Monitoring, Evaluation and Goals: 1. EN consistent with estimated nutritional needs. 2. Lytes WNL. 3. Promote regular BM's. [facility] Nutrition Therapy DATE: 08/25/17 Patient: RAHUL AARON Physician: GIANNA Address: [address] [place] [address] ROAD Room/Bed: [address], Zip: [place] [address] Admit Date: 10/16/16 Date of : 31 Height: 5 3 Weight: 134 61 Monitor: per protocol, criteria to determine if above goals met Recommendations: 1. Once medically feasible initiate enteral nutrition with Jevity 1.5 @ 20 ml/hr and increase by 10 ml q 6 hours until goal rate of 45 ml/hr is reached, to provide 1080 ml, 1620 kcals, 69 g protein and 821 ml water. Once at goal rate add 200 ml free water flushes QID, or per MD. 2. Replace lytes prn (Mg low). RD will follow hospital course Moderate-severe nutrition risk Respectfully, Ashleigh Spears RD, LD Food and Nutritional Services [facility] cc: client file
--- NOTE | ~2016-10-16 | US77 ---
[facility] A Service of [facility] RADIOLOGY TEXT RESULTS PATIENT: RAHUL AARON LOCATION: [facility] 330- : 31 UNIT #: [id number] AGE: [address]: Ozzie Peter MD SEX: F ORDER DR: [id number] [facility] [address] [place], [place] [address] [id number] I MR#: [id number] Acc #: [id number] NAME: RAHUL AARON : 1930 SEX: F STUDY DATE/TIME: 10/26/2016 17:16 UNIT: C3A PCU ROOM: 330 STUDY DESCRIPTION: US Kidney Bilateral Complete Attending Physician: Ozzie Peter M.D. Ordering Physician: Maria Luz Mukherjee M.D. Primary Care Physician: Geovanny Malin Jr., M.D. MEDICAL IMAGING REPORT This report is preliminary unless electronic signature is present REVISED REPORT SEE ADDENDUM EXAM Complete renal ultrasound bilateral. COMPARISON November 09, 2011. INDICATIONS 86-year-old female acute renal failure today. BUN of 43 and creatinine of 43.6 with estimated GFR of 29.1. FINDINGS Right kidney measures 9.3 cm in length with normal cortical thickness. No right hydronephrosis or shadowing calculus. There is color flow in the right kidney. No definite focal lesion of the right kidney. There is ascites in the left upper quadrant of the abdomen of uncertain etiology. Left kidney measures 9.2 cm in length. There is no evidence of left hydronephrosis. Left cortical thickness is within normal limits. No definite shadowing left renal calculus or focal left renal lesion although evaluation of left kidney is limited by poor acoustic window. Urinary bladder is collapsed due to indwelling David catheter and not well evaluated. IMPRESSION 1. Low normal renal size with normal renal cortical thickness bilaterally. No evidence of hydronephrosis. 2. Limited evaluation of the urinary bladder due to indwelling David catheter. 3. Complex appearing fluid in the left upper quadrant of the abdomen of [facility] A Service of [facility] RADIOLOGY TEXT RESULTS PATIENT: RAHUL AARON LOCATION: [facility] 330-01 : 31 UNIT #: [id number] AGE: [address]: Ozzie Peter MD SEX: F ORDER DR: uncertain etiology. Clinical correlation is recommended. If indicated CT could be performed for further characterization and to diagnose possible etiology. Dictated by... Rocael Landaverde M.D. Jong TD: 10/27/2016 00:20 JOB #: [id number] ADDENDUM It actually appears that there is a small to moderate left-sided pleural effusion. No definite fluid collection is seen in the left upper quadrant of the abdomen. There is a lobular hypoechoic structure in the left upper quadrant of the abdomen which may reflect the spleen and an associated splenule. Mass lesion cannot entirely be excluded. Again, CT may be helpful for characterization. On comparison CT of December 09, 2012 it appears there is only a small splenule in the left upper quadrant of the abdomen and it is conceivable that the current findings could reflect bowel loops adjacent to the residual spleen. Again, CT could be performed to exclude the possibility of a mass in the left upper quadrant of the abdomen. Dictated by... Rocael Landaverde M.D. THIS IS AN ELECTRONICALLY VERIFIED REPORT Rocael Landaverde M.D. at 11/03/2016 7:50 AM Bc TD: 10/27/2016 00:24 JOB #: [id number] MEDICAL IMAGING REPORT Page 1 of 1 COPY
--- NOTE | ~2016-10-16 | US140 ---
[facility] A Service of [facility] & [facility] RADIOLOGY TEXT RESULTS PATIENT: RAHUL AARON LOCATION: [address] : 31 UNIT #: [id number] AGE: [address]: Ozzie Peter MD SEX: F ORDER DR: [id number] [facility] [address] [place], [place] [address] [id number] I MR#: [id number] Acc #: [id number] NAME: RAHUL AARON : 1930 SEX: F STUDY DATE/TIME: 10/23/2016 21:32 UNIT: [facility] ROOM: [facility] STUDY DESCRIPTION: US UE Veins Unilat or Ltd Stdy Attending Physician: Ozzie Peter M.D. Ordering Physician: Pardeep Alvarado M.D. Primary Care Physician: Geovanny Malin Jr., M.D. MEDICAL IMAGING REPORT This report is preliminary unless electronic signature is present EXAM Venous Doppler ultrasound, right upper extremity, 10/23/2016 HISTORY 86-year-old female hospital inpatient with right arm swelling after PICC infiltration last evening. TECHNIQUE Venous ultrasound examination of the right upper extremity was performed using grayscale, spectral Doppler and color flow Doppler imaging. FINDINGS The examination is negative. There is no evidence of deep venous thrombus within the right internal jugular vein, subclavian vein, axillary vein or brachial veins. No superficial venous thrombus is seen within the cephalic or basilic veins. IMPRESSION Negative examination. No evidence of right upper extremity venous thrombosis. Dictated by... Luis Antonio Aguila M.D. THIS IS AN ELECTRONICALLY VERIFIED REPORT Luis Antonio Aguila M.D. at 10/24/2016 9:47 AM Angelina TD: 10/24/2016 08:09 JOB #: [id number] MEDICAL IMAGING REPORT Page 1 of 1 COPY
--- NOTE | ~2016-10-16 | CR72 ---
[facility] A Service of [facility] RADIOLOGY TEXT RESULTS PATIENT: RAHUL AARON LOCATION: [facility] 330- : 31 UNIT #: [id number] AGE: [address]: Ozzie Peter MD SEX: F ORDER DR: [id number] [facility] [address] [place], [place] [address] [id number] I MR#: [id number] Acc #: [id number] NAME: RAHUL AARON : 1930 SEX: F STUDY DATE/TIME: 11/01/2016 16:21 [facility] STUDY DESCRIPTION: CR Chest Single View Portable Attending Physician: Ozzie Peter M.D. Ordering Physician: Ozzie Peter M.D. Primary Care Physician: Geovanny Malin Jr., M.D. MEDICAL IMAGING REPORT This report is preliminary unless electronic signature is present EXAM Frontal chest, 11/01/2016. INDICATIONS 86-year-old female with shortness of air that began today. TECHNIQUE Frontal chest compared with 10/31/2016. FINDINGS There is scoliosis and an IVC filter. Left-sided PICC line unchanged. The heart is enlarged, but stable. Interval worsening of interstitial and alveolar opacities bilaterally, left greater than right with superimposed effusions. Imaging features may reflect pulmonary edema. Edema and/or superimposed pneumonia or simply multifocal pneumonia also in the differential. Follow up to clearing recommended. No pneumothorax. IMPRESSION 1. Cardiomegaly with extensive interstitial alveolar infiltrates left greater than right and superimposed effusions. Differential includes pulmonary edema, edema and superimposed pneumonia or multifocal pneumonia. STAT * RESULT Dictated by... Trace Dennis M.D. THIS IS AN ELECTRONICALLY VERIFIED REPORT Trace Dennis M.D. at 11/01/2016 9:31 PM KHADARY/sashat [facility] A Service of [facility] & [facility] RADIOLOGY TEXT RESULTS PATIENT: RAHUL AARON LOCATION: [facility] 330-01 : 31 UNIT #: [id number] AGE: [address]: Ozzie Peter MD SEX: F ORDER DR: TD: 11/01/2016 16:50 JOB #: [id number] MEDICAL IMAGING REPORT Page 1 of 1 COPY
--- NOTE | ~2016-10-16 | FU ---
[facility] Nutrition Therapy DATE: 10/31/16 Patient: RAHUL AARON Physician: GIANNA Address: [address] [place] [address] ROAD Room/Bed: [address] [place] [address], Zip: [place] [address] Admit Date: 10/16/16 Date of : 31 Height: 5 3 Weight: 113 51.4 NUTRITION MONITORING/FOLLOW-UP: Reason: Enteral nutrition follow-up Admitting dx: 86 y/o female admitted with aspiration PNA Anthropometrics: Ht: 63", admission wt: 51.4-61 kg, current wt: 51.4 kg, BMI: 20 Note weight fluctuations likely due to fluid accumulation noted on abdominal u/s Average weight since admission: 56.2 kg Labs: K+ 5.5, BUN 68, creat 2.2, glucose 120, AST 75, ALT 62, GFR 19.8, Na/Mg/Phos WNL Meds: IV Abx, pepcid, miralax, 1/2 NS IVF @ 75 ml/hr GI: BM 10/30, PEG in place Skin: healed pressure ulcer coccyx, generalized edema R hand Estimated Nutrition Needs: 9869-7453 kcals/day (25-30 kcals/kg based on average weight) 56-67 g protein/day (1.0-1.2 g/kg based on average weight) Fluids consistent with kcal needs or per MD Assessment: Chart reviewed, events noted. Patient extubated on 10/26, now on 6L oxymizer. Renal following due to ESTEBAN. She is not appropriate for VOLUNTEER SPECIALIST eval at this time, PEG tube in place with Jevity 1.5 running at goal rate of 45 ml/hr. Patient has received 97% goal volume x 24 hours per pump history. GRV not documented. + normal BM's. Note weight fluctuations since admission due to abdominal fluid accumulation- average weight used to estimated nutritional needs. See nutrition dx, goals and recs as stated below. Will continue to follow hospital course. Dx: Inadequate oral intake r/t dysphagia AEB NPO, PEG, need for EN - ACTIVE Intervention: Continue current EN regimen Monitoring, Evaluation and Goals: 1. EN to provide > 80% goal volume x 24 hrs - MET (pt received 97%) 2. Labs WNL - NOT MET/IN PROGRESS (see labs above) 3. Promote normal GI function - MET No new goals [facility] Nutrition Therapy DATE: 10/31/16 Patient: RAHULMAGGIE AARON Physician: GIANNA Address: [address] [place] [address] ROAD Room/Bed: [address] [place] [address], Zip: [place] [address] Admit Date: 10/16/16 Date of : 31 Height: 5 3 Weight: 113 51.4 Monitor: per protocol, criteria to determine if above goals met Recommendations: 1. Continue current enteral nutrition regimen: Jevity 1.5 @ 45 ml/hr to provide 100% of estimated nutritional needs. If K/Phos become consistently elevated or ESTEBAN does not resolve, consider changing enteral nutrition formula to Nepro @ goal rate 40 ml/hr. 2. PO diet per VOLUNTEER SPECIALIST only if appropriate with no other dietary restrictions. Status: Mild-moderate nutrition risk Respectfully, Ashleigh Spears, BENJAMIN, LD Food and Nutritional Services [facility] cc: client file
--- NOTE | ~2016-10-16 | CR72 ---
[facility] A Service of [facility] & [facility] RADIOLOGY TEXT RESULTS PATIENT: RAHUL AARON LOCATION: [facility] 330- : 31 UNIT #: [id number] AGE: [address]: Ozzie Peter MD SEX: F ORDER DR: [id number] [facility] [address] [place], [place] [address] [id number] I MR#: [id number] Acc #: [id number] NAME: RAHUL AARON : 1930 SEX: F STUDY DATE/TIME: 10/31/2016 6:29 UNIT: [address] ROOM: [facility] STUDY DESCRIPTION: CR Chest Single View Portable Attending Physician: Ozzie Peter M.D. Ordering Physician: Maria Luz Mukherjee M.D. Primary Care Physician: Geovanny Malin Jr., M.D. MEDICAL IMAGING REPORT This report is preliminary unless electronic signature is present EXAM Portable chest INDICTIONS Status post thoracentesis followup effusion. FINDINGS A portable view of the chest was obtained. Increased density in the lower half of each hemithorax is still present. On the right side, this is reduced due to thoracentesis. There is bilateral lower lobe atelectasis. The PIC catheter is in good position. Dictated by... Kurt العراقي M.D. THIS IS AN ELECTRONICALLY VERIFIED REPORT Kurt العراقي M.D. at 10/31/2016 3:08 PM MARY/tyree TD: 10/31/2016 08:50 JOB #: [id number] MEDICAL IMAGING REPORT Page 1 of 1 COPY
--- NOTE | ~2016-10-16 | CR71 ---
[facility] A Service of [facility] & [facility] RADIOLOGY TEXT RESULTS PATIENT: RAHUL AARON LOCATION: [address] : 31 UNIT #: [id number] AGE: [address]: Pardeep Alvarado MD SEX: F ORDER DR: [id number] [facility] [address] [place], [place] [address] [id number] I MR#: [id number] Acc #: [id number] NAME: RAHUL AARON : 1930 SEX: F STUDY DATE/TIME: 10/19/2016 12:50 UNIT: [facility] ROOM: [facility] STUDY DESCRIPTION: CR Chest Single View Attending Physician: Pardeep Alvarado M.D. Ordering Physician: Darion Morillo M.D. Primary Care Physician: Geovanny Malin Jr., M.D. MEDICAL IMAGING REPORT This report is preliminary unless electronic signature is present EXAM Chest, portable; 10/19/2016, 1250 hours. CLINICAL HISTORY Postop esophageal duodenostomy with PEG placement today, shortness of air requiring intubation today. COMPARISON 10/16/2016 FINDINGS Single view of the chest demonstrates endotracheal tube with tip 2 cm above the paz. There is diffuse bilateral mixed interstitial and airspace change with left pleural effusion greater than right. Left effusion appears increased. There is increased air beneath the right hemidiaphragm medially which could be within the bowel. This does not have the contour to suggest free air, but the lucency is new. Percutaneous gastrostomy tube is partially imaged at the inferior margin of the film. IMPRESSION 1. New endotracheal tube tip is 2 cm above the paz. 2. There is interval increase in bilateral airspace changes and increase in left greater than right pleural effusions suggesting congestive heart failure. 3. Gastrostomy tube is seen to the left of midline in the left abdomen likely within the mid stomach. 4. There is lucency beneath the dome of the medial right hemidiaphragm increased since the prior study. This appears to be intraluminal either within a hiatal hernia or a traversing portion of the transverse colon. [facility] A Service of [facility] & [facility] RADIOLOGY TEXT RESULTS PATIENT: RAHUL AARON LOCATION: [address] : 31 UNIT #: [id number] AGE: [address]: Pardeep Alvarado MD SEX: F ORDER DR: Dictated by... Rcahel Zuniga M.D. THIS IS AN ELECTRONICALLY VERIFIED REPORT Rachel Zuniga M.D. at 10/20/2016 9:08 AM MARC/dory TD: 10/19/2016 16:36 JOB #: [id number] MEDICAL IMAGING REPORT Page 1 of 1 COPY
--- NOTE | ~2016-10-16 | CR4 ---
[facility] A Service of [facility] & [facility] RADIOLOGY TEXT RESULTS PATIENT: RAHUL AARON LOCATION: [address]-19 : 31 UNIT #: [id number] AGE: [address]: Ozzie Peter MD SEX: F ORDER DR: [id number] [facility] [address] [place], [place] [address] [id number] I MR#: [id number] Acc #: [id number] NAME: RAHUL AARON : 1930 SEX: F STUDY DATE/TIME: 10/22/2016 23:02 UNIT: [facility] ROOM: [facility] STUDY DESCRIPTION: CR Abdomen Flat Upright or Dec Attending Physician: Ozzie Peter M.D. Ordering Physician: Pardeep Alvarado M.D. Primary Care Physician: Geovanny Malin Jr., M.D. MEDICAL IMAGING REPORT This report is preliminary unless electronic signature is present EXAM Abdomen flat and. upright HISTORY Abdomen pain today. FINDINGS Flat and upright views of the abdomen demonstrates no bowel dilatation or displacement. No free air. Gastrostomy tube extends over the medial left upper quadrant at the level of the stomach. IVC filter at the L2-L3 level. Moderate right lumbar curve. IMPRESSION No acute findings. No bowel obstruction or free air. Residual contrast material in nondistended colon. Dictated by... Joel Melendez M.D. THIS IS AN ELECTRONICALLY VERIFIED REPORT Joel Melendez M.D. at 10/23/2016 10:26 PM DFL/gz TD: 10/23/2016 11:36 JOB #: [id number] MEDICAL IMAGING REPORT Page 1 of 1 COPY
--- NOTE | ~2016-10-16 | CR72 ---
[facility] A Service of [facility] RADIOLOGY TEXT RESULTS PATIENT: RAHUL AARON LOCATION: [facility] : 31 UNIT #: [id number] AGE: [address]: Pardeep Alvarado MD SEX: F ORDER DR: [id number] [facility] [address] [place], [place] [address] [id number] I MR#: [id number] Acc #: [id number] NAME: RAHUL AARON : 1930 SEX: F STUDY DATE/TIME: 10/16/2016 19:28 [facility] STUDY DESCRIPTION: CR Chest Single View Portable Attending Physician: Pardeep Alvarado M.D. Ordering Physician: Blanca Blankenship M.D. Primary Care Physician: Geovanny Malin Jr., M.D. MEDICAL IMAGING REPORT This report is preliminary unless electronic signature is present EXAM Portable chest 10/16/2016 HISTORY Shortness of breath for 1 day. FINDINGS The cardiac and mediastinal structures are stable compared with 10/03/2016. Large hiatal hernia is unchanged. There are diffuse interstitial infiltrates which have increased since the previous examination. Bilateral pleural effusions with bibasilar infiltrates or atelectasis. IMPRESSION 1. Stable cardiomegaly compared with 10/03/2016. 2. Interval increase in the diffuse bilateral infiltrates probably reflecting worsening pulmonary edema or interstitial pneumonia. 3. Increasing bilateral pleural effusions with bibasilar infiltrates or atelectasis. 4. Large hiatal hernia. Dictated by... Rob Grier M.D. THIS IS AN ELECTRONICALLY VERIFIED REPORT Rob Grier M.D. at 10/17/2016 2:16 PM MINERVA/stacy TD: 10/17/2016 09:51 JOB #: [id number] MEDICAL IMAGING REPORT [facility] A Service [facility] RADIOLOGY TEXT RESULTS PATIENT: RAHUL AARON LOCATION: [facility] : 31 UNIT #: [id number] AGE: [address]: Pardeep Alvarado MD SEX: F ORDER DR: Page 1 of 1 COPY
--- NOTE | ~2016-10-16 | CR72 ---
[facility] A Service of [facility] & [facility] RADIOLOGY TEXT RESULTS PATIENT: RAHUL AARON LOCATION: [place] [address] : 31 UNIT #: [id number] AGE: [address]: Ozzie Peter MD SEX: F ORDER DR: [id number] [facility] [address] [facility] [place], [place] [address] [id number] I MR#: [id number] Acc #: [id number] NAME: RAHUL AARON : 1930 SEX: F STUDY DATE/TIME: 10/28/2016 5:23 UNIT: [facility] ROOM: [facility] STUDY DESCRIPTION: CR Chest Single View Portable Attending Physician: Ozzie Peter M.D. Ordering Physician: Didier Packer M.D. Primary Care Physician: Geovanny Malin Jr., M.D. MEDICAL IMAGING REPORT This report is preliminary unless electronic signature is present EXAM Portable chest. INDICATIONS Respiratory failure today. PROCEDURE Frontal view chest. COMPARISON 10/25/2016 FINDINGS Heart size is obscured. Probable increasing right and left effusions. No new dense consolidation. No visible pneumothorax. IMPRESSION Increasing bilateral pleural effusions. Dictated by... Jose Bird M.D. THIS IS AN ELECTRONICALLY VERIFIED REPORT Jose Bird M.D. at 10/28/2016 10:03 PM LAW/dory TD: 10/28/2016 21:18 JOB #: [id number] MEDICAL IMAGING REPORT Page 1 of 1 COPY
--- NOTE | ~2016-10-16 | CR72 ---
[facility] A Service of [facility] RADIOLOGY TEXT RESULTS PATIENT: RAHUL AARON LOCATION: [address] : 31 UNIT #: [id number] AGE: [address]: Ozzie Peter MD SEX: F ORDER DR: [id number] [facility] [address] [place], [place] [address] [id number] I MR#: [id number] Acc #: [id number] NAME: RAHUL AARON : 1930 SEX: F STUDY DATE/TIME: 10/23/2016 5:21 UNIT: [facility] ROOM: [facility] STUDY DESCRIPTION: CR Chest Single View Portable Attending Physician: Ozzie Peter M.D. Ordering Physician: Luis Antonio Pollock M.D. Primary Care Physician: Geovanny Malin Jr., M.D. MEDICAL IMAGING REPORT This report is preliminary unless electronic signature is present EXAM Portable chest HISTORY Respiratory failure for 1 week. FINDINGS Increased moderate infiltrate in the right midlung as compared to yesterday. Remainder of the chest is stable including moderately dense consolidation or atelectasis in the left base and left mid lung and small to moderate-sized left pleural effusion. Stable cardiac enlargement. Support devices are unchanged in position. Dictated by... Joel Melendez M.D. THIS IS AN ELECTRONICALLY VERIFIED REPORT Joel Melendez M.D. at 10/25/2016 4:12 AM MALU/stacy TD: 10/23/2016 12:48 JOB #: [id number] MEDICAL IMAGING REPORT Page 1 of 1 COPY
--- NOTE | ~2016-10-16 | CR6 ---
[facility] A Service of [facility] & [facility] RADIOLOGY TEXT RESULTS PATIENT: RAHUL AARON LOCATION: [address]01 : 31 UNIT #: [id number] AGE: [address]: Ozzie Peter MD SEX: F ORDER DR: [id number] [facility] [address] [place], [place] [address] [id number] I MR#: [id number] Acc #: [id number] NAME: RAHUL AARON : 1930 SEX: F STUDY DATE/TIME: 10/22/2016 12:11 [facility] STUDY DESCRIPTION: CR Abdomen Portable Sng View Attending Physician: Ozzie Peter M.D. Ordering Physician: Darion Morillo M.D. Primary Care Physician: Geovanny Malin Jr., M.D. MEDICAL IMAGING REPORT This report is preliminary unless electronic signature is present EXAM AP view of the abdomen COMPARISON October 20, 2016 INDICATION Abdominal pain which is generalized for 1 day. FINDINGS Please note that evaluation for pneumoperitoneum is nondiagnostic on this supine view. Skin fold artifact appeared to be present over the epigastrium and right upper quadrant of the abdomen. There is likely a gastrostomy tube. Residual barium or contrast is noted within the small bowel and colon. No evidence of high-grade mechanical bowel obstruction. There is cardiomegaly. Endotracheal tube tip terminates approximately 4.4 cm above the paz. There is bilateral pleural effusion with associated bibasilar atelectasis versus pneumonia. Opacities are somewhat nodular in the lateral right midlung, perhaps accentuated by overlapping tubing. Imaging followup to ensure resolution is recommended. There is thoracolumbar scoliosis. Calcification of the aortic arch. No definite pneumothorax. Subcutaneous gas is seen in the right axillary region and there is malpositioned catheter terminating in the right axilla. IMPRESSION 1. No evidence of bowel obstruction. Please note that evaluation for free air is limited on this supine view. There is what is favored to represent a skin fold over the right mid abdomen and right lateral abdomen, much less likely free air. 2. Malpositioned catheter in the right axilla with associated subcutaneous gas. Repositioning is recommended. 3. Small bilateral pleural effusions with bibasilar atelectasis versus pneumonia. Mass-like density in the right lower chest appreciated on [facility]. [facility] A Service of [facility] & [facility] RADIOLOGY TEXT RESULTS PATIENT: RAHUL AAORN LOCATION: [facility] 330-01 : 31 UNIT #: [id number] AGE: [address]: Ozzie Peter MD SEX: F ORDER DR: chest radiograph performed earlier today. This likely reflects the patient's gastric pull-through in the right lower chest. Not mentioned specifically in the body of the report, there is a gastrostomy tube and there is an IVC filter which are in grossly adequate positions although not well evaluated due to patient's scoliosis. 3. Grossly stable bibasilar pleural effusions with associated atelectasis versus pneumonia. 4. Cardiomegaly. 5. Adequate position of endotracheal tube. Dictated by... Rocael Landaverde M.D. THIS IS AN ELECTRONICALLY VERIFIED REPORT Rocael Landaverde M.D. at 11/03/2016 7:45 AM EAGLE/tom TD: 10/23/2016 08:10 JOB #: [id number] MEDICAL IMAGING REPORT Page 1 of 1 COPY
--- NOTE | ~2016-10-16 | FU ---
[facility] Nutrition Therapy DATE: 10/23/16 Patient: RAHUL AARON Physician: GIANNA Address: [address] [place] [address] ROAD Room/Bed: [address], Zip: [place] [address] Admit Date: 10/16/16 Date of : 31 Height: 5 3 Weight: 134 61 NUTRITION MONITORING/FOLLOW-UP: Reason: PT SEEN FOR FOLLOW-UP DX: DYSPNEA, ASPIRATION PNA Anthropometrics: 5'3", WT: 134# ( CURRENT WEIGHT) (61 KG), BMI: 23.7 -ADMIT WEIGHT: ~123# Labs: GLU: 136, BUN: 32, NA+131, CA+;7.7, ALB: 1.8, PRE-ALB: 7.2, GFR: 45.8 Meds: TPN, LIPIDS, PEPCID, NACL I&O's: 2840/1810 Skin: PREVIOUSLY NOTED Estimated Nutrition Needs: [id number] KCAL 56-67 G PRO Assessment: CHART REVIEWED AND EVENTS NOTED. PT SEEN FOR FOLLOW-UP. PT CONTINUES TO BE INTUBATED AND SEDATED AT TIME OF VISIT RECEIVING TPN 25% DEXTROSE, 5% AA @ 55 ML/HR + 20% 250 ML LIPIDS q 72 HOURS. PT CURRENTLY HAS A PEG TUBE IN. PER RN AND CHART, ?FREE AIR S/P PEG. NO FAMILY IN ROOM AT THIS TIME. RD TO CONTINUE TO FOLLOW. SEE RECOMMENDATIONS BELOW TPN NOT INDICATED FOR PT AT THIS TIME Dx: INADEQUATE ENERGY INTAKE R/T DYSPHAGIA AEB NPO, PEG, NEED FOR ENTERAL NUTRITION.-ACTIVE Intervention: 1. TPN 2. PEG TUBE Monitoring, Evaluation and Goals: 1. EN CONSISTENT W/ESTIMATED NUTRITIONAL NEEDS-NOT MET 2. LYTES WNL-IN PROGRESS 3. PROMOTE REGULAR BMs-IN PROGRESS NEW GOALS: 1. ENTERAL VS. PARENTERAL NUTRITION; PROVIDE >80% ESTIMATED NEEDS 2. WEIGHTS; PROMOTE WEIGHT MAINTENANCE 3. LABS; WNL 4. PROMOTE REGULAR GI FUNCTION MONITOR: PER PROTOCOL, CRITERIA TO DETERMINE IF ABOVE GOALS MET [facility] Nutrition Therapy DATE: 10/23/16 Patient: RAHUL AARON Physician: GIANNA Address: [address] [place] [address] ROAD Room/Bed: [address], Zip: [place] [address] Admit Date: 10/16/16 Date of : 31 Height: 5 3 Weight: 134 61 Recommendations: 1. TPN NOT INDICATED FOR PT. IF TPN CONTINUES, RECOMMEND CURRENT TPN 25% DEXTROSE, 5% AA @ 55 ML/HR + 20% 250 ML LIPIDS q 72 HOURS -PROVIDES 66 G PRO, 1122 DEXTROSE KCAL, 1386 TOTAL KCAL (GUR: 4.1) PT RECEIVES ADDITIONAL 500 KCAL ON LIPID DAYS q 72 HOURS- TOTAL:1886 KCAL 2. MONITOR LYTES, BLOOD SUGARS AND TGs DAILY. 3. ONCE ENTERAL NUTRITION SUPPORT APPROPRIATE, RECOMMEND TO BEGIN ENTERAL NUTRITION OF JEVITY 1.5 @ 20 ML/HR, ADVANCE 10 ML q 6 HOURS TO GOAL RATE OF 45 ML/HR -1620 KCAL, 69 G PRO, 821 ML FREE H20 ADD FREE H20 FLUSHES OF 200 ML QID TO MEET PT'S CURRENT ESTIMATED FLUID NEEDS OR MANAGE PER MD 4. ONCE EXTUBATED, ADVANCE DIET PER REVIEW SPECIALIST RD WILL F/U PER PROTOCOL PT IS MOD/SEVERELY COMPROMISED Respectfully, KIMO JOLLY MS, RD, LD Food and Nutritional Services [facility] cc: client file
--- NOTE | ~2016-10-16 | CR7 ---
[facility] A Service of [facility] RADIOLOGY TEXT RESULTS PATIENT: RAHUL AARON [address] 31 UNIT #: [id number] AGE: [address]: Ozzie Peter MD SEX: F ORDER DR: [id number] [facility] [address] [facility]. [place], [place] [address] [id number] I MR#: [id number] Acc #: [id number] NAME: RAHUL AARON : 1930 SEX: F STUDY DATE/TIME: 10/22/2016 22:03 [facility] STUDY DESCRIPTION: CR Abdomen Single AP View Attending Physician: Ozzie Peter M.D. Ordering Physician: Darion Morillo M.D. Primary Care Physician: Geovanny Malin Jr., M.D. MEDICAL IMAGING REPORT This report is preliminary unless electronic signature is present EXAM Abdomen 10/22/2016 HISTORY 86-year-old female with abdominal pain beginning today. Order requests evaluation for free air. COMPARISON Abdomen 10/22/2016. FINDINGS Frontal supine abdomen demonstrates residual barium throughout the colon. The bowel gas pattern is nonobstructive. IVC filter noted. Free air cannot be evaluated for on a supine plain film of the abdomen. If there is concern for free air, consider flat and upright views of the abdomen or CT scan of the abdomen and pelvis. IMPRESSION 1. Nonobstructive bowel gas pattern with residual barium in the colon. 2. Evaluation for free intraperitoneal air is severely limited on a supine frontal plain film of the abdomen. If there is continued clinical concern for free intraperitoneal air, consider repeat examination with flat and upright views of the abdomen or a CT abdomen/pelvis. Dictated by... Daniel Fox M.D. THIS IS AN ELECTRONICALLY VERIFIED REPORT Daniel Fox M.D. at 10/23/2016 3:06 PM GRADY/stacy [facility] A Service of [facility] RADIOLOGY TEXT RESULTS PATIENT: RAHUL AARON [address] UNIT #: [id number] AGE: [address]: Ozzie Peter MD SEX: F ORDER DR: TD: 10/23/2016 11:09 JOB #: [id number] MEDICAL IMAGING REPORT Page 1 of 1 COPY
--- NOTE | ~2016-10-16 | CO ---
Unit #: [id number] #: [id number] Patient: RAHUL NOLEN [id number] [address] [place], [place] [address] [id number] I MR#: [id number] NAME: RAHUL NOLEN ROOM: [facility] Age: 86 Sex: F Admission Date: 10/16/2016 : 1930 Attending Physician: Ozzie Peter M.D. Primary Care Physician: Geovanny Malin Jr., M.D. Consultation Date: 10/21/2016 CONSULTATION REPORT REASON FOR CONSULT Renal insufficiency. Thank you very much for asking me to see this patient in consultation. HISTORY OF PRESENT ILLNESS Ms. Nolen is an 86-year-old female, who was actually in the hospital earlier this month from September 28 to October 04 for aspiration pneumonia. She also had an exudative pleural effusion, although apparently cytology was negative for any lymphoma, who represented to the hospital with some increased shortness of breath. Patient subsequently felt to have aspiration pneumonia. She underwent a PEG placement on October 19. Postop, she was unable to be extubated and she remains on the ventilator. We were asked to see the patient secondary to decreased urine output over the last 24 hours, about 25-50 mL per hour. The patient's family is at bedside and chart has been reviewed. Patient was noted over the last 36 hours to have several episodes of hypotension with the lowest being a systolic of 75 and she was started on phenylephedrine drip. She is arousable but somnolent, again orally intubated on TPN. PAST MEDICAL HISTORY 1. History of DVT and PE in the past. 2. History of dementia. 3. History of pneumonia. 4. History of ITP. 5. History of anxiety. 6. History of depression. 7. Status post splenectomy. 8. Status post cholecystectomy. 9. Status post appendectomy. 10. History of pulmonary hypertension. 11. History of mitral and tricuspid regurgitation. 12. History of dysphagia. 13. History of diastolic congestive heart failure with normal EF. SOCIAL HISTORY She is for 63 years. Previous smoker many years ago, none recently. No alcohol. ALLERGIES Her allergies were reviewed and are multiple. REVIEW OF SYSTEMS Unable to obtain at this point. Unit #: [id number] #: [id number] Patient: RAHUL NOLEN FAMILY HISTORY Noncontributory. PHYSICAL EXAMINATION GENERAL: Again, she is arousable but somnolent. VITAL SIGNS: Her T-max is 100.2, pulse 66-90. Over the last 24 hours, systolic blood pressure is 66-90 over 40s to 70s. She has had 2544 in and out 1000. HEENT: She is normocephalic and atraumatic. Her pupils are equal, round, reactive to light. Her extraocular muscles are intact. Her hearing appears to be fairly normal. Mouth: She is orally intubated. NECK: Supple. No JVD. CARDIAC: She appears to have a regular rhythm without a rub. No S3 or S4. LUNGS: She has just occasional rhonchi. ABDOMEN: PEG tube is in place. Bowel sounds positive. EXTREMITIES: She has some trace lower extremity swelling. Her pulses are intact over lower extremities. JOINT: No joint pain, joint swelling. GENITOURINARY: Deferred. She does have a David catheter in. MEDICATIONS Vasotec p.r.n. for hypertension but she does not appear to have gotten any. She is on TPN, Protonix, Maxipime, and phenylephedrine drip. DIAGNOSTIC STUDIES LABORATORY: Last check ABG showed pH 7.41, pCO2 of 43, pO2 of 93 on 50%. Sodium 134, potassium 3.9, chloride 100, bicarbonate 26, BUN 14, creatinine 0.8, glucose 151. Calcium 7.9. Phosphorous 2.5. Magnesium 1.9. BNP 135. INR 3. White count 14,500, hemoglobin 10.9, platelets 433,000. IMAGING: Chest x-ray shows some bilateral effusions. ASSESSMENT AND PLAN 1. Acute renal insufficiency: Although the creatinine has not worsened yet, she does have decreased urine output and I suspect she probably had some acute tubular necrosis from hypotension with decreased perfusion, etc. She also may have some early sepsis. Will check blood cultures and urine cultures, although not done yet. Will check urine eosinophils, random urine sodium. Will keep David catheter in for now. Agree with TPN and she did just receive a fluid bolus. Will discontinue her Protonix due to risk of renal failure and place her on Pepcid 20 mg IV q.12. Will check for labs in the morning and will continue to follow. 2. Respiratory failure: Possible aspiration pneumonia again. 3. History of dysphagia: Now status post PEG, currently on TPN. Dictated by..Stephen Whitt/yogseh TD: 10/23/2016 09:25 Unit #: [id number] #: [id number] Patient: RAHUL NOLEN JOB #: [id number] CONSULTATION REPORT Page 1 of 1 X Nick Mukherjee MD X CONSULTATION REPORT
--- NOTE | ~2016-10-16 | OR ---
Unit #: [id number] #: [id number] Patient: RAHUL AARON [id number] [place] [address] [facility]. [place], [place] [address] [id number] I MR#: [id number] NAME: RAHUL AARON ROOM: [facility] Date of Procedure: 10/19/2016 Admission Date: 10/16/2016 Surgeon: Darion Morillo M.D. : 1930 Attending Physician: Pardeep Alvarado M.D. Primary Care Physician: Geovanny Malin Jr., M.D. OPERATIVE REPORT PROCEDURE PERFORMED Esophagogastroduodenoscopy with percutaneous endoscopic gastrostomy tube placement. INDICATIONS FOR PROCEDURE The patient with severe dysphagia, recurrent aspiration, unable to swallow any, undergoing evaluation with EGD and PEG tube placement. MEDICATION General anesthesia. POSTOPERATIVE FINDINGS 1. Esophagus was very tortuous, significantly dilated with a tight esophageal ring. There was a lot of retained food in the esophagus, which was aspirated. 2. The GE junction was dilated significantly with this passes of the scope itself. 3. Normal stomach. 4. Normal duodenum and distal duodenum. 5. Very large hiatal hernia. 6. Successful placement of G-tube by push method. PLAN Please see inpatient orders for details. DESCRIPTION OF PROCEDURE The patient was explained of the procedure, risks, and benefits along with risks and benefits of anesthesia. She was brought to the endoscopy room. Monitored anesthesia was started; however, because of the developing hypoxia, she has to be intubated. Initially, I was able to pass the nasoscope only through the GE junction and exam was completely; however, later I pushed a regular scope and was able to gently maneuver the way into the stomach. Minimal dilation was carried out this way of the GE junction ring. We identified a good spot using a transillumination method, which was then confirmed with indentation and safe track method. Skin was prepped. Small incision was made. After local anesthetic, trocar and cannula were passed. A guidewire was passed through it and pulled out of the patient's mouth using a snare and the scope. Push method tube was then placed over it and pushed over the wire and pulled out of anterior abdominal wall, where it was secured with an external bumper. The scope was reintroduced. Inner bumper was nicely in place. Gently, the scope was pulled out. She tolerated it alright. No major complications seen. Unit #: [id number] #: [id number] Patient: RAHUL AARON Dictated by... Stephen Sharma/hal TD: 10/19/2016 13:08 JOB #: [id number] OPERATIVE REPORT Page 1 of 1 X Darion Morillo MD PROCEDURE OPERATIVE NOTE
--- NOTE | ~2016-10-16 | CR72 ---
[facility] A Service of [facility] & [facility] RADIOLOGY TEXT RESULTS PATIENT: RAHUL AARON LOCATION: [address] : 31 UNIT #: [id number] AGE: [address]: Pardeep Alvarado MD SEX: F ORDER DR: [id number] [facility] [address] [place], [place] [address] [id number] MR#: [id number] #: [id number] NAME: RAHUL AARON : 1930 SEX: F STUDY DATE/TIME: 10/22/2016 4:18 UNIT: [facility] ROOM: [facility] STUDY DESCRIPTION: CR Chest Single View Portable Attending Physician: Pardeep Alvarado M.D. Ordering Physician: Luis Antonio Pollock M.D. Primary Care Physician: Geovanny Malin Jr., M.D. MEDICAL IMAGING REPORT This report is preliminary unless electronic signature is present EXAM Portable chest. HISTORY Respiratory failure for 1 week. FINDINGS There is an approximately 8 cm rounded masslike density in the medial right lower chest, which is new compared to 10/20/2016. There is also a rounded density in the medial left upper chest also measuring close to 8 cm. This is also apparently new since the prior study. Consider followup chest CT for further evaluation of these findings. Moderate interstitial prominence in both lungs with partial clearing of the diffuse bilateral infiltrates since the prior exam. Persistent moderate-sized left pleural effusion and probable small right pleural effusion. Remainder of the chest is stable. Dictated by... Joel Melendez M.D. THIS IS AN ELECTRONICALLY VERIFIED REPORT Joel Melendez M.D. at 10/23/2016 4:51 AM DFL/demetris TD: 10/23/2016 00:22 JOB #: [id number] MEDICAL IMAGING REPORT Page 1 of 1 COPY
--- NOTE | ~2016-10-16 | FU ---
[facility] Nutrition Therapy DATE: 10/26/16 Patient: RAHUL AARON Physician: GIANNA Address: [address] [place] [address] ROAD Room/Bed: [address], Zip: [place] [address] Admit Date: 10/16/16 Date of : 31 Height: 5 3 Weight: 130 59 NUTRITION MONITORING/FOLLOW-UP: Reason: Nutrition follow up Anthropometrics: Ht: 63" Adm wt: 56.2 kg BMI: 20 Wt 10/26: 59 kg Labs: Na+ 133 Cl- 97 Gluc 130 BUN 43 Creat 1.6 Ca++ 7.7 Alb 1.9 AST 81 ALT 57 Gluc POC 134-142 GFR 29.1 Meds: Miralax, pepcid I&O's/ GI: 1485/801, last BM 10/25, +PEG Skin: Healed pressure ulcer to coccyx Puncture procedure site left abdomen No edema noted Estimated Nutrition Needs: 5392-9037 kcals (25-30 kcals/kg) 56-67 grams protein (1.0-1.2 grams/kg) Assessment: Chart reviewed, events noted. Pt remains in the ICU, extubated this AM. TPN was discontinued on 10/23/16. Pt is tolerating Jevity 1.5 @ 45 ml/hr, which is goal rate. Per pump history, the pt has received 97% goal volume EN over the past 24 hrs. No order for CHICKEN PICKER at this time d/t recent extubation. Per RN report, the pt has a h/o aspiration with PEG in place. RD will continue to follow. Dx: Inadequate oral intake RT dysphagia AEB NPO, PEG, need for enteral nutrition- ACTIVE Intervention: 1. EN 2. PEG Monitoring, Evaluation and Goals: 1. EN consistent with estimated nutrient needs- MET 2. Lytes WNL- IN PROGRESS 3. Promote regular BMs- IN PROGRESS 4. Enteral vs Parenteral nutrition - NO LONGER RELEVANT (EN ONLY) 5. Labs; WNL- NOT MET/ IN PROGRESS [facility] Nutrition Therapy DATE: 10/26/16 Patient: RAHUL AARON Physician: GIANNA Address: [address] [place] [address] ROAD Room/Bed: [address], Zip: [place] [address] Admit Date: 10/16/16 Date of : 31 Height: 5 3 Weight: 130 59 NEW GOALS (IN ADDITION TO ABOVE) 1. Improve labs; BUN, creat, Na+, AST, ALT, glucose, GFR 2. Enteral nutrition; provide >80% goal volume x 24 hrs Recommendations: 1. Continue enteral nutrition with Jevity 1.5 @ 45 mL/hr. 2. Optimize the pt's insulin regimen. 3. Recommend CHICKEN PICKER evaluation once appropriate to determine if the pt can safely tolerate PO intake. No additional therapeutic diet restrictions recommended if the pt's diet is advanced. Status: Pt is at mild-moderate nutritional risk. RD will continue to follow hospital course per protocol. Respectfully, LENIN HODGES RD, LD Food and Nutritional Services [facility] cc: client file
--- NOTE | ~2016-10-16 | CR264 ---
[facility] A Service of [facility] & [facility] / [facility] RADIOLOGY TEXT RESULTS PATIENT: RAHUL AARON LOCATION: [address] : 31 UNIT #: [id number] AGE: [address]: Ozzie Peter MD SEX: F ORDER DR: [id number] [facility] [address] [place], [place] [address] [id number] MR#: [id number] #: [id number] NAME: RAHUL AARON : 1930 SEX: F STUDY DATE/TIME: 10/20/2016 10:31 UNIT: [facility] ROOM: [facility] STUDY DESCRIPTION: CR Upper GI Series W KUB Attending Physician: Pardeep Alvarado M.D. Ordering Physician: Darion Morillo M.D. Primary Care Physician: Geovanny Malin Jr., M.D. MEDICAL IMAGING REPORT This report is preliminary unless electronic signature is present EXAMINATION Percutaneous gastrostomy tube injection with fluoroscopy. DATE 10/20/2016 HISTORY Free air is seen upon decubitus views of the abdomen today, 10/20/2016 at 07:14. Peg tube placement verification requested. COMPARISON Decubitus abdominal radiographs 10/20/2016 07:14. AP portable chest radiograph 10/20/2016 at 05:41. CT chest 10/02/2016. CT chest 12/09/2012. FINDINGS Approximately 80 mL of Gastrografin contrast was injected in the patient's percutaneous gastrostomy tube under fluoroscopic observation. Contrast is seen outlining the gastric lumen and the rugal folds. Of note, there is contrast reflux into the upper two-thirds of the stomach which is intrathoracic in location, to the right of midline, and this large hiatal hernia has been documented on previous CT chest studies from 10/02/2016 and 12/09/2012. However, no enteric contrast extravasation is identified. Contrast is seen advancing into the duodenum. IMPRESSION 1. Gastrografin injection documents presence of the percutaneous gastrostomy tube within the gastric lumen. 2. Large hiatal hernia, with the upper two-thirds of the stomach projecting to the right of midline in the chest. This is a known finding from CT chest dating back to 2012. 3. Fluoroscopic images were obtained. 0.8 minutes fluoroscopy time was STS. [facility] A Service of [facility] & [facility] / [facility] RADIOLOGY TEXT RESULTS PATIENT: RAHUL AARON LOCATION: [place] [address]- : 31 UNIT #: [id number] AGE: [address]: Ozzie Peter MD SEX: F ORDER DR: utilized. Dictated by... Abeba Nuñez M.D. THIS IS AN ELECTRONICALLY VERIFIED REPORT Abeba Nuñez M.D. at 10/25/2016 3:26 PM FOZIA/bethanie TD: 10/21/2016 00:31 JOB #: [id number] MEDICAL IMAGING REPORT Page 1 of 1 COPY
[~2016-10-16 18:27] MED LIST changes: +CARBIDOPA-LEVO1 EAC5 PO; +CELEXA10 MG PO; +DOXYCYCLINE PO; +LISINOPRIL2.5 MG PO; +MULTIVITAMINS1 EAC3 PO; +OXYCODONE-ACET1 EAC1 PO; +PATIENT'S PHARMACY; +PRAVACHOL PO
[2016-10-16 19:48] LABS: POC - CKMB 1.8 ng/mL (0.0-7.9); POC - TROPONIN <0.05 ng/mL (<=0.05)
[2016-10-16 19:54] LABS: BASOPHIL# 0.1 X10e3 (0-0.3); BASOPHIL% 1.1 % (0-2.5); EOSINOPHIL# 0.2 X10e3 (0-0.7); EOSINOPHIL% 1.4 % (0.0-7.0); HEMATOCRIT 35.4 % (35.0-45.0); HEMOGLOBIN 11.6 gm/dL (12.0-16.0); LYMPHOCYTE# 2.1 X10e3 (1.0-3.5); LYMPHOCYTE% 16.8 % (17.0-45.0); MEAN CELL VOLUME 97.5 FL (83-96); MEAN CORPUSCULAR HGB CONC 32.8 g/dL (30-36); MEAN PLATELET VOLUME 7.7 FL (6.5-11.5); MONOCYTE# 0.9 X10e3 (0-1.0); NEUTROPHIL# 9.4 X10e3 (1.5-7.1); NEUTROPHIL% 73.7 % (40-75); PLATELET COUNT 481 X10e3 (140-420); RED BLOOD COUNT 3.63 X10e (3.90-5.30); RED CELL DISTRIBUTION WIDTH 13.9 % (11.0-15.5); WHITE BLOOD COUNT 12.7 X10e3 (4.0-10.5)
[2016-10-16 20:00] LABS: DIFF IND NO
[2016-10-16 20:07] LABS: INR 2.2; PROTHROMBIN TIME (PATIENT) 23.6 SECONDS (10.0-11.7)
[2016-10-16 20:22] LABS: ALBUMIN SERUM 2.6 g/dL (3.5-5.0); ALKALINE PHOSPHATASE 88 U/L (32-92); AST (SGOT) 16 U/L (10-42); BILIRUBIN, DIRECT 0.1 mg/dL (0.0-0.2); BILIRUBIN,INDIRECT 0.5 mg/dL (0.0-0.9); BILIRUBIN,TOTAL 0.6 mg/dL (0.2-2.0); BLOOD UREA NITROGEN 24 mg/dL (9-23); CALCIUM SERUM 8.4 mg/dL (8.4-10.2); CARBON DIOXIDE 30 mmol/L (22-31); CHLORIDE 96 mmol/L (100-111); CREATININE SERUM 1.2 mg/dL (0.6-1.4); GLOM FILT RATE Estimated 41.2 mL/min (>60); GLUCOSE FASTING 96 mg/dL (70-110); POTASSIUM 4.6 mmol/L (3.5-5.1); PROTEIN TOTAL SERUM 6.5 g/dL (6.0-8.3); SODIUM 134 mmol/L (135-145)
[2016-10-16 20:24] LABS: ALT (SGPT) <5 U/L (10-40)
[2016-10-17 05:24] LABS: BASOPHIL# 0.2 X10e3 (0-0.3); BASOPHIL% 1.2 % (0-2.5); EOSINOPHIL# 0.2 X10e3 (0-0.7); EOSINOPHIL% 1.4 % (0.0-7.0); HEMOGLOBIN 11.9 gm/dL (12.0-16.0); LYMPHOCYTE# 1.9 X10e3 (1.0-3.5); LYMPHOCYTE% 13.2 % (17.0-45.0); MEAN CORPUSCULAR HEMOGLOBIN 32.3 PG (28-34); MEAN CORPUSCULAR HGB CONC 32.9 g/dL (30-36); MEAN PLATELET VOLUME 7.8 FL (6.5-11.5); MONOCYTE# 0.8 X10e3 (0-1.0); MONOCYTE% 5.7 % (3.0-12.0); NEUTROPHIL# 11.4 X10e3 (1.5-7.1); NEUTROPHIL% 78.5 % (40-75); PLATELET COUNT 520 X10e3 (140-420); RED BLOOD COUNT 3.67 X10e (3.90-5.30); RED CELL DISTRIBUTION WIDTH 13.8 % (11.0-15.5); WHITE BLOOD COUNT 14.5 X10e3 (4.0-10.5)
[2016-10-17 05:26] LABS: DIFF IND NO
[2016-10-17 06:07] LABS: INR 2.1; PROTHROMBIN TIME (PATIENT) 23.3 SECONDS (10.0-11.7)
[2016-10-17 06:45] LABS: CALCIUM SERUM 8.4 mg/dL (8.4-10.2); GLOM FILT RATE Estimated 51.4 mL/min (>60); POTASSIUM 5.2 mmol/L (3.5-5.1)
[2016-10-18 06:11] LABS: INR 2.6; PROTHROMBIN TIME (PATIENT) 28.1 SECONDS (10.0-11.7)
[2016-10-18 06:18] LABS: HEMATOCRIT 31.6 % (35.0-45.0); HEMOGLOBIN 10.4 gm/dL (12.0-16.0); MEAN CELL VOLUME 97.1 FL (83-96); MEAN CORPUSCULAR HGB CONC 32.9 g/dL (30-36); RED BLOOD COUNT 3.25 X10e (3.90-5.30); RED CELL DISTRIBUTION WIDTH 13.8 % (11.0-15.5); WHITE BLOOD COUNT 17.4 X10e3 (4.0-10.5)
[2016-10-18 06:50] LABS: BUN/CREATININE RATIO 17.77; CREATININE SERUM 0.9 mg/dL (0.6-1.4); GLOM FILT RATE Estimated 58.3 mL/min (>60)
[2016-10-19 05:27] LABS: HEMATOCRIT 31.8 % (35.0-45.0); HEMOGLOBIN 10.5 gm/dL (12.0-16.0); MEAN CELL VOLUME 97.1 FL (83-96); MEAN CORPUSCULAR HEMOGLOBIN 32.1 PG (28-34); MEAN CORPUSCULAR HGB CONC 33.1 g/dL (30-36); MEAN PLATELET VOLUME 7.9 FL (6.5-11.5); RED BLOOD COUNT 3.28 X10e (3.90-5.30); RED CELL DISTRIBUTION WIDTH 13.8 % (11.0-15.5)
[2016-10-19 05:36] LABS: INR 1.9; PROTHROMBIN TIME (PATIENT) 20.9 SECONDS (10.0-11.7)
[2016-10-19 07:01] LABS: CALCIUM SERUM 8.1 mg/dL (8.4-10.2); CREATININE SERUM 0.7 mg/dL (0.6-1.4); POTASSIUM 4.7 mmol/L (3.5-5.1)
[2016-10-19 15:31] LABS: ARTERIAL BLD GAS O2 SATURATION 96.8 % (90.0-100.0); ARTERIAL BLOOD GAS ALLEN TEST NORMAL; ARTERIAL BLOOD GAS ART SITE LEFT RADIAL; ARTERIAL BLOOD GAS CARBOXY HB 0.3 %sat (0.0-9.0); ARTERIAL BLOOD GAS DELIVERY VENT; ARTERIAL BLOOD GAS HCO3 29.4 mmol/L; ARTERIAL BLOOD GAS MET HB 0.4 %sat (0.0-2.0); ARTERIAL BLOOD GAS PCO2 47.1 mmHg (35.0-45.0); ARTERIAL BLOOD GAS PO2 89.7 mmHg (80.0-100); ARTERIAL BLOOD GAS VENT MODE AC; ARTERIAL BLOOD GAS pH 7.403 (7.350-7.450); ARTERIAL DRAW? YES
[2016-10-19 16:17] LABS: CK TOTAL 46 IU/L (26-140)
[2016-10-19 22:04] LABS: CK TOTAL 36 IU/L (26-140)
[2016-10-20 05:08] LABS: BASOPHIL# 0.1 X10e3 (0-0.3); BASOPHIL% 0.6 % (0-2.5); EOSINOPHIL# 0.1 X10e3 (0-0.7); EOSINOPHIL% 1.2 % (0.0-7.0); HEMATOCRIT 33.7 % (35.0-45.0); HEMOGLOBIN 11.1 gm/dL (12.0-16.0); LYMPHOCYTE# 1.1 X10e3 (1.0-3.5); LYMPHOCYTE% 8.5 % (17.0-45.0); MEAN CELL VOLUME 97.1 FL (83-96); MEAN PLATELET VOLUME 7.8 FL (6.5-11.5); MONOCYTE# 0.9 X10e3 (0-1.0); NEUTROPHIL# 10.2 X10e3 (1.5-7.1); NEUTROPHIL% 82.7 % (40-75); PLATELET COUNT 455 X10e3 (140-420); RED BLOOD COUNT 3.47 X10e (3.90-5.30); RED CELL DISTRIBUTION WIDTH 13.6 % (11.0-15.5); WHITE BLOOD COUNT 12.3 X10e3 (4.0-10.5)
[2016-10-20 05:21] LABS: DIFF IND NO
[2016-10-20 06:07] LABS: ALBUMIN SERUM 2.4 g/dL (3.5-5.0); BILIRUBIN,TOTAL 0.6 mg/dL (0.2-2.0); BUN/CREATININE RATIO 14.44; CALCIUM SERUM 8.1 mg/dL (8.4-10.2); CREATININE SERUM 0.9 mg/dL (0.6-1.4); GLOM FILT RATE Estimated 58.3 mL/min (>60); MAGNESIUM 1.3 mg/dL (1.6-3.0); PHOSPHOROUS 3.3 mg/dL (2.5-4.6)
[2016-10-20 06:11] LABS: CK TOTAL 32 IU/L (26-140)
[2016-10-20 08:52] LABS: ARTERIAL BLD GAS O2 SATURATION 89.7 % (90.0-100.0); ARTERIAL BLOOD GAS ALLEN TEST NORMAL; ARTERIAL BLOOD GAS ART SITE LEFT RADIAL; ARTERIAL BLOOD GAS CARBOXY HB 0.6 %sat (0.0-9.0); ARTERIAL BLOOD GAS HCO3 28.4 mmol/L; ARTERIAL BLOOD GAS PCO2 44.3 mmHg (35.0-45.0); ARTERIAL BLOOD GAS PO2 61.6 mmHg (80.0-100); ARTERIAL BLOOD GAS pH 7.415 (7.350-7.450); ARTERIAL DRAW? YES
[2016-10-20 08:53] LABS: ARTERIAL BLOOD GAS DELIVERY VENT; ARTERIAL BLOOD GAS VENT MODE CPAP
[2016-10-20 11:39] LABS: INR 2.5; PROTHROMBIN TIME (PATIENT) 27.7 SECONDS (10.0-11.7)
[2016-10-21 04:11] LABS: ARTERIAL BLD GAS O2 SATURATION 96.1 % (90.0-100.0); ARTERIAL BLOOD GAS CARBOXY HB 0.3 %sat (0.0-9.0); ARTERIAL BLOOD GAS HCO3 27.7 mmol/L; ARTERIAL BLOOD GAS PCO2 43.8 mmHg (35.0-45.0); ARTERIAL BLOOD GAS PO2 92.9 mmHg (80.0-100)
[2016-10-21 04:12] LABS: ARTERIAL BLOOD GAS ALLEN TEST NORMAL; ARTERIAL BLOOD GAS ART SITE LEFT RADIAL; ARTERIAL BLOOD GAS DELIVERY VENT; ARTERIAL BLOOD GAS VENT MODE AC; ARTERIAL DRAW? YES
[2016-10-21 06:18] LABS: BASOPHIL# 0.1 X10e3 (0-0.3); BASOPHIL% 0.7 % (0-2.5); EOSINOPHIL# 0.1 X10e3 (0-0.7); EOSINOPHIL% 0.9 % (0.0-7.0); HEMATOCRIT 33.4 % (35.0-45.0); HEMOGLOBIN 10.9 gm/dL (12.0-16.0); LYMPHOCYTE% 6.8 % (17.0-45.0); MEAN CELL VOLUME 96.8 FL (83-96); MEAN CORPUSCULAR HEMOGLOBIN 31.7 PG (28-34); MEAN CORPUSCULAR HGB CONC 32.7 g/dL (30-36); MEAN PLATELET VOLUME 8.2 FL (6.5-11.5); MONOCYTE# 1.1 X10e3 (0-1.0); MONOCYTE% 7.9 % (3.0-12.0); NEUTROPHIL# 12.1 X10e3 (1.5-7.1); NEUTROPHIL% 83.7 % (40-75); PLATELET COUNT 433 X10e3 (140-420); RED BLOOD COUNT 3.46 X10e (3.90-5.30); RED CELL DISTRIBUTION WIDTH 13.7 % (11.0-15.5); WHITE BLOOD COUNT 14.5 X10e3 (4.0-10.5)
[2016-10-21 06:50] LABS: BUN/CREATININE RATIO 17.5; CALCIUM SERUM 7.9 mg/dL (8.4-10.2); CREATININE SERUM 0.8 mg/dL (0.6-1.4); GLOM FILT RATE Estimated 67.3 mL/min (>60); MAGNESIUM 1.9 mg/dL (1.6-3.0); PHOSPHOROUS 2.9 mg/dL (2.5-4.6); POTASSIUM 3.9 mmol/L (3.5-5.1); PREALBUMIN 7.2 mg/dL (17.0-42.0)
[2016-10-21 07:31] LABS: DIFF IND NO
[2016-10-21 17:49] LABS: URINE APPEARANCE CLEAR; URINE BILIRUBIN NEG (NEG); URINE BLOOD 2+ (NEG); URINE COLOR YELLOW; URINE GLUCOSE NEG (NEG); URINE KETONE NEG (NEG); URINE LEUKOCYTE ESTERASE TRACE (NEG); URINE NITRATE NEG (NEG); URINE PROTEIN 1+ (NEG); URINE SPECIFIC GRAVITY 1.022 (1.003-1.035); URINE UROBILINOGEN 0.2 MG/DL (NEG)
[2016-10-21 17:52] LABS: URINE BACTERIA AUWI NEG (NEGATIVE); URINE SQUAMOUS EPITHELIAL CELL OCC /[HPF]
[2016-10-22 03:29] LABS: ARTERIAL BLD GAS O2 SATURATION 95.2 % (90.0-100.0); ARTERIAL BLOOD GAS CARBOXY HB 0.6 %sat (0.0-9.0); ARTERIAL BLOOD GAS MET HB 0.7 %sat (0.0-2.0); ARTERIAL BLOOD GAS PCO2 38.7 mmHg (35.0-45.0); ARTERIAL BLOOD GAS PO2 87.5 mmHg (80.0-100); ARTERIAL BLOOD GAS pH 7.418 (7.350-7.450)
[2016-10-22 03:30] LABS: ARTERIAL BLOOD GAS ALLEN TEST NORMAL; ARTERIAL BLOOD GAS ART SITE LEFT RADIAL; ARTERIAL BLOOD GAS DELIVERY VENT; ARTERIAL BLOOD GAS VENT MODE AC; ARTERIAL DRAW? YES
[2016-10-22 05:17] LABS: HEMATOCRIT 30.5 % (35.0-45.0); HEMOGLOBIN 10.2 gm/dL (12.0-16.0); MEAN CELL VOLUME 96.2 FL (83-96); MEAN CORPUSCULAR HEMOGLOBIN 32.1 PG (28-34); MEAN CORPUSCULAR HGB CONC 33.4 g/dL (30-36); RED BLOOD COUNT 3.17 X10e (3.90-5.30); RED CELL DISTRIBUTION WIDTH 13.5 % (11.0-15.5); WHITE BLOOD COUNT 16.8 X10e3 (4.0-10.5)
[2016-10-22 05:34] LABS: BUN/CREATININE RATIO 24.44; CALCIUM SERUM 7.7 mg/dL (8.4-10.2); CREATININE SERUM 0.9 mg/dL (0.6-1.4); GLOM FILT RATE Estimated 58.3 mL/min (>60); MAGNESIUM 1.7 mg/dL (1.6-3.0); PHOSPHOROUS 2.7 mg/dL (2.5-4.6)
[2016-10-23 04:19] LABS: ARTERIAL BLD GAS O2 SATURATION 98.2 % (90.0-100.0); ARTERIAL BLOOD GAS CARBOXY HB 0.5 %sat (0.0-9.0); ARTERIAL BLOOD GAS HCO3 23.9 mmol/L; ARTERIAL BLOOD GAS MET HB 1.1 %sat (0.0-2.0); ARTERIAL BLOOD GAS pH 7.509 (7.350-7.450)
[2016-10-23 04:29] LABS: ARTERIAL BLOOD GAS ALLEN TEST NORMAL; ARTERIAL BLOOD GAS ART SITE LEFT RADIAL; ARTERIAL BLOOD GAS VENT MODE AC; ARTERIAL DRAW? YES
[2016-10-23 05:37] LABS: BASOPHIL# 0.1 X10e3 (0-0.3); BASOPHIL% 0.5 % (0-2.5); EOSINOPHIL# 0.1 X10e3 (0-0.7); EOSINOPHIL% 0.5 % (0.0-7.0); HEMATOCRIT 26.7 % (35.0-45.0); LYMPHOCYTE# 1.2 X10e3 (1.0-3.5); LYMPHOCYTE% 6.4 % (17.0-45.0); MEAN CELL VOLUME 96.5 FL (83-96); MEAN CORPUSCULAR HEMOGLOBIN 32.4 PG (28-34); MEAN CORPUSCULAR HGB CONC 33.6 g/dL (30-36); MEAN PLATELET VOLUME 8.1 FL (6.5-11.5); MONOCYTE# 1.2 X10e3 (0-1.0); MONOCYTE% 6.5 % (3.0-12.0); NEUTROPHIL# 16.1 X10e3 (1.5-7.1); NEUTROPHIL% 86.1 % (40-75); PLATELET COUNT 355 X10e3 (140-420); RED BLOOD COUNT 2.76 X10e (3.90-5.30); RED CELL DISTRIBUTION WIDTH 13.5 % (11.0-15.5); WHITE BLOOD COUNT 18.7 X10e3 (4.0-10.5)
[2016-10-23 05:39] LABS: DIFF IND YES
[2016-10-23 06:09] LABS: ALBUMIN SERUM 1.8 g/dL (3.5-5.0); BILIRUBIN,TOTAL 0.5 mg/dL (0.2-2.0); BUN/CREATININE RATIO 29.09; CALCIUM SERUM 7.7 mg/dL (8.4-10.2); CREATININE SERUM 1.1 mg/dL (0.6-1.4); GLOM FILT RATE Estimated 45.8 mL/min (>60); MAGNESIUM 1.4 mg/dL (1.6-3.0); PHOSPHOROUS 2.6 mg/dL (2.5-4.6); POTASSIUM 3.8 mmol/L (3.5-5.1); PROTEIN TOTAL SERUM 5.1 g/dL (6.0-8.3)
[2016-10-23 06:56] LABS: ANISOCYTOSIS SL; OVALOCYTES PRESENT; PLATELET ESTIMATE NORMAL (NORMAL)
[2016-10-23 12:36] LABS: INR 1.4
[2016-10-23 12:46] LABS: PROTHROMBIN TIME (PATIENT) 15.5 SECONDS (10.0-11.7)
[2016-10-24 06:07] LABS: CALCIUM SERUM 7.6 mg/dL (8.4-10.2); CREATININE SERUM 1.2 mg/dL (0.6-1.4); GLOM FILT RATE Estimated 41.2 mL/min (>60); MAGNESIUM 1.8 mg/dL (1.6-3.0)
[2016-10-24 08:01] LABS: ARTERIAL BLD GAS O2 SATURATION 95.3 % (90.0-100.0); ARTERIAL BLOOD GAS ALLEN TEST NORMAL; ARTERIAL BLOOD GAS ART SITE LEFT RADIAL; ARTERIAL BLOOD GAS CARBOXY HB 0.6 %sat (0.0-9.0); ARTERIAL BLOOD GAS DELIVERY VENT; ARTERIAL BLOOD GAS HCO3 25.5 mmol/L; ARTERIAL BLOOD GAS PCO2 37.5 mmHg (35.0-45.0); ARTERIAL BLOOD GAS PO2 84.2 mmHg (80.0-100); ARTERIAL BLOOD GAS VENT MODE CPAP; ARTERIAL BLOOD GAS pH 7.441 (7.350-7.450); ARTERIAL DRAW? YES
[2016-10-25 03:45] LABS: BASOPHIL# 0.1 X10e3 (0-0.3); BASOPHIL% 0.7 % (0-2.5); EOSINOPHIL# 0.2 X10e3 (0-0.7); EOSINOPHIL% 1.3 % (0.0-7.0); HEMATOCRIT 24.7 % (35.0-45.0); HEMOGLOBIN 8.3 gm/dL (12.0-16.0); LYMPHOCYTE# 1.3 X10e3 (1.0-3.5); LYMPHOCYTE% 9.2 % (17.0-45.0); MEAN CORPUSCULAR HGB CONC 33.7 g/dL (30-36); MEAN PLATELET VOLUME 7.8 FL (6.5-11.5); MONOCYTE# 1.3 X10e3 (0-1.0); MONOCYTE% 9.5 % (3.0-12.0); NEUTROPHIL# 10.9 X10e3 (1.5-7.1); NEUTROPHIL% 79.3 % (40-75); PLATELET COUNT 381 X10e3 (140-420); RED CELL DISTRIBUTION WIDTH 13.5 % (11.0-15.5); WHITE BLOOD COUNT 13.7 X10e3 (4.0-10.5)
[2016-10-25 03:46] LABS: DIFF IND NO
[2016-10-25 04:10] LABS: ALBUMIN SERUM 1.9 g/dL (3.5-5.0); BILIRUBIN,TOTAL 0.7 mg/dL (0.2-2.0); BUN/CREATININE RATIO 29.28; CALCIUM SERUM 7.6 mg/dL (8.4-10.2); CREATININE SERUM 1.4 mg/dL (0.6-1.4); GLOM FILT RATE Estimated 34.2 mL/min (>60); MAGNESIUM 1.7 mg/dL (1.6-3.0); PHOSPHOROUS 3.4 mg/dL (2.5-4.6); POTASSIUM 3.8 mmol/L (3.5-5.1); PROTEIN TOTAL SERUM 5.4 g/dL (6.0-8.3)
[2016-10-25 10:10] LABS: ARTERIAL BLD GAS O2 SATURATION 95.7 % (90.0-100.0); ARTERIAL BLOOD GAS CARBOXY HB 0.5 %sat (0.0-9.0); ARTERIAL BLOOD GAS HCO3 28.5 mmol/L; ARTERIAL BLOOD GAS MET HB 0.8 %sat (0.0-2.0); ARTERIAL BLOOD GAS PCO2 37.7 mmHg (35.0-45.0); ARTERIAL BLOOD GAS PO2 84.9 mmHg (80.0-100); ARTERIAL BLOOD GAS pH 7.487 (7.350-7.450)
[2016-10-25 10:11] LABS: ARTERIAL BLOOD GAS ALLEN TEST NORMAL; ARTERIAL BLOOD GAS ART SITE LEFT RADIAL; ARTERIAL DRAW? YES
[2016-10-25 10:12] LABS: ARTERIAL BLOOD GAS VENT MODE CPAP
[2016-10-26 04:00] LABS: BASOPHIL# 0.2 X10e3 (0-0.3); BASOPHIL% 1.2 % (0-2.5); DIFF IND NO; EOSINOPHIL# 0.3 X10e3 (0-0.7); EOSINOPHIL% 2.3 % (0.0-7.0); HEMATOCRIT 26.4 % (35.0-45.0); HEMOGLOBIN 8.6 gm/dL (12.0-16.0); LYMPHOCYTE# 1.4 X10e3 (1.0-3.5); MEAN CELL VOLUME 95.3 FL (83-96); MEAN CORPUSCULAR HGB CONC 32.5 g/dL (30-36); MEAN PLATELET VOLUME 8.3 FL (6.5-11.5); MONOCYTE# 1.5 X10e3 (0-1.0); MONOCYTE% 10.3 % (3.0-12.0); NEUTROPHIL# 10.9 X10e3 (1.5-7.1); NEUTROPHIL% 76.2 % (40-75); PLATELET COUNT 412 X10e3 (140-420); RED BLOOD COUNT 2.77 X10e (3.90-5.30); RED CELL DISTRIBUTION WIDTH 13.4 % (11.0-15.5); WHITE BLOOD COUNT 14.2 X10e3 (4.0-10.5)
[2016-10-26 04:22] LABS: ALBUMIN SERUM 1.9 g/dL (3.5-5.0); BILIRUBIN,TOTAL 0.6 mg/dL (0.2-2.0); BUN/CREATININE RATIO 26.87; CALCIUM SERUM 7.7 mg/dL (8.4-10.2); CREATININE SERUM 1.6 mg/dL (0.6-1.4); GLOM FILT RATE Estimated 29.1 mL/min (>60); MAGNESIUM 2.1 mg/dL (1.6-3.0); POTASSIUM 4.2 mmol/L (3.5-5.1); PROTEIN TOTAL SERUM 5.8 g/dL (6.0-8.3)
[2016-10-26 08:16] LABS: ARTERIAL BLD GAS O2 SATURATION 94.1 % (90.0-100.0); ARTERIAL BLOOD GAS CARBOXY HB 0.6 %sat (0.0-9.0); ARTERIAL BLOOD GAS HCO3 29.1 mmol/L; ARTERIAL BLOOD GAS MET HB 0.5 %sat (0.0-2.0); ARTERIAL BLOOD GAS PCO2 36.7 mmHg (35.0-45.0); ARTERIAL BLOOD GAS pH 7.507 (7.350-7.450)
[2016-10-26 08:17] LABS: ARTERIAL BLOOD GAS ALLEN TEST NORMAL; ARTERIAL BLOOD GAS ART SITE LEFT RADIAL; ARTERIAL BLOOD GAS PO2 73.6 mmHg (80.0-100); ARTERIAL BLOOD GAS VENT MODE CPAP; ARTERIAL DRAW? YES
[2016-10-27 05:59] LABS: BILIRUBIN,TOTAL 0.4 mg/dL (0.2-2.0); BUN/CREATININE RATIO 29.37; CALCIUM SERUM 8.2 mg/dL (8.4-10.2); CREATININE SERUM 1.6 mg/dL (0.6-1.4); GLOM FILT RATE Estimated 29.1 mL/min (>60); POTASSIUM 4.5 mmol/L (3.5-5.1); PROTEIN TOTAL SERUM 5.9 g/dL (6.0-8.3)
[2016-10-27 06:31] LABS: BASOPHIL# 0.3 X10e3 (0-0.3); BASOPHIL% 1.5 % (0-2.5); EOSINOPHIL# 0.4 X10e3 (0-0.7); EOSINOPHIL% 2.5 % (0.0-7.0); HEMATOCRIT 29.6 % (35.0-45.0); HEMOGLOBIN 9.7 gm/dL (12.0-16.0); LYMPHOCYTE# 1.2 X10e3 (1.0-3.5); LYMPHOCYTE% 6.7 % (17.0-45.0); MEAN CELL VOLUME 95.9 FL (83-96); MEAN CORPUSCULAR HEMOGLOBIN 31.4 PG (28-34); MEAN CORPUSCULAR HGB CONC 32.7 g/dL (30-36); MEAN PLATELET VOLUME 8.7 FL (6.5-11.5); MONOCYTE# 1.3 X10e3 (0-1.0); MONOCYTE% 7.6 % (3.0-12.0); NEUTROPHIL# 14.1 X10e3 (1.5-7.1); NEUTROPHIL% 81.7 % (40-75); PLATELET COUNT 455 X10e3 (140-420); RED BLOOD COUNT 3.09 X10e (3.90-5.30); RED CELL DISTRIBUTION WIDTH 13.9 % (11.0-15.5); WHITE BLOOD COUNT 17.2 X10e3 (4.0-10.5)
[2016-10-27 06:37] LABS: DIFF IND YES
[2016-10-27 07:32] LABS: PLATELET ESTIMATE NORMAL (NORMAL)
[2016-10-27 07:33] LABS: TARGET CELLS SL
[2016-10-27 07:36] LABS: URINE APPEARANCE TURBID; URINE BILIRUBIN NEG (NEG); URINE BLOOD 3+ (NEG); URINE COLOR YELLOW; URINE GLUCOSE NEG (NEG); URINE KETONE TRACE (NEG); URINE LEUKOCYTE ESTERASE 2+ (NEG); URINE NITRATE NEG (NEG); URINE PROTEIN 2+ (NEG); URINE SPECIFIC GRAVITY 1.023 (1.003-1.035); URINE UROBILINOGEN 0.2 MG/DL (NEG)
[2016-10-27 07:39] LABS: CULTURE INDICATED? YES; URINE SQUAMOUS EPITHELIAL CELL NONE SEEN /[HPF]; UWBCS1 AUWI 50-100 (0-5)
[2016-10-27 08:30] LABS: URINE BACTERIA AUWI 1+ (NEGATIVE)
[2016-10-27 08:31] LABS: URINE YEAST PRESENT
[2016-10-28 03:56] LABS: BASOPHIL# 0.1 X10e3 (0-0.3); BASOPHIL% 0.6 % (0-2.5); EOSINOPHIL# 0.7 X10e3 (0-0.7); EOSINOPHIL% 3.8 % (0.0-7.0); HEMATOCRIT 25.7 % (35.0-45.0); HEMOGLOBIN 8.6 gm/dL (12.0-16.0); LYMPHOCYTE# 1.4 X10e3 (1.0-3.5); LYMPHOCYTE% 8.4 % (17.0-45.0); MEAN CELL VOLUME 95.2 FL (83-96); MEAN CORPUSCULAR HEMOGLOBIN 31.6 PG (28-34); MEAN CORPUSCULAR HGB CONC 33.2 g/dL (30-36); MEAN PLATELET VOLUME 8.4 FL (6.5-11.5); MONOCYTE# 1.5 X10e3 (0-1.0); MONOCYTE% 8.6 % (3.0-12.0); NEUTROPHIL# 13.4 X10e3 (1.5-7.1); NEUTROPHIL% 78.6 % (40-75); PLATELET COUNT 466 X10e3 (140-420); RED CELL DISTRIBUTION WIDTH 13.6 % (11.0-15.5)
[2016-10-28 03:57] LABS: DIFF IND NO
[2016-10-28 04:11] LABS: ALBUMIN SERUM 1.9 g/dL (3.5-5.0); BILIRUBIN,TOTAL 0.3 mg/dL (0.2-2.0); BUN/CREATININE RATIO 29.47; CALCIUM SERUM 7.8 mg/dL (8.4-10.2); CREATININE SERUM 1.9 mg/dL (0.6-1.4); GLOM FILT RATE Estimated 23.6 mL/min (>60); MAGNESIUM 2.1 mg/dL (1.6-3.0); PHOSPHOROUS 4.6 mg/dL (2.5-4.6); POTASSIUM 4.5 mmol/L (3.5-5.1); PROTEIN TOTAL SERUM 5.6 g/dL (6.0-8.3)
[2016-10-29 14:52] LABS: PROTEIN, BODY FLUID 3.4 gm/dL
[2016-10-29 15:43] LABS: BODY FLUID APPEARANCE HAZY; BODY FLUID SOURCE PLEURAL
[2016-10-30 05:46] LABS: HEMATOCRIT 24.5 % (35.0-45.0); HEMOGLOBIN 8.2 gm/dL (12.0-16.0); MEAN CELL VOLUME 95.7 FL (83-96); MEAN CORPUSCULAR HGB CONC 33.5 g/dL (30-36); MEAN PLATELET VOLUME 8.5 FL (6.5-11.5); RED BLOOD COUNT 2.56 X10e (3.90-5.30); RED CELL DISTRIBUTION WIDTH 13.7 % (11.0-15.5); WHITE BLOOD COUNT 16.1 X10e3 (4.0-10.5)
[2016-10-30 06:51] LABS: BUN/CREATININE RATIO 28.63; CALCIUM SERUM 8.2 mg/dL (8.4-10.2); CREATININE SERUM 2.2 mg/dL (0.6-1.4); GLOM FILT RATE Estimated 19.8 mL/min (>60); POTASSIUM 5.2 mmol/L (3.5-5.1)
[2016-10-31 05:38] LABS: HEMATOCRIT 23.6 % (35.0-45.0); HEMOGLOBIN 7.8 gm/dL (12.0-16.0); MEAN CELL VOLUME 96.1 FL (83-96); MEAN CORPUSCULAR HEMOGLOBIN 31.7 PG (28-34); MEAN PLATELET VOLUME 8.7 FL (6.5-11.5); RED BLOOD COUNT 2.45 X10e (3.90-5.30); WHITE BLOOD COUNT 16.6 X10e3 (4.0-10.5)
[2016-10-31 06:31] LABS: ALBUMIN SERUM 1.5 g/dL (3.5-5.0); BILIRUBIN,TOTAL 0.3 mg/dL (0.2-2.0); BUN/CREATININE RATIO 30.9; CALCIUM SERUM 7.9 mg/dL (8.4-10.2); CREATININE SERUM 2.2 mg/dL (0.6-1.4); GLOM FILT RATE Estimated 19.8 mL/min (>60); PHOSPHOROUS 4.5 mg/dL (2.5-4.6); PROTEIN TOTAL SERUM 4.7 g/dL (6.0-8.3)
[2016-10-31 06:33] LABS: POTASSIUM 5.5 mmol/L (3.5-5.1)
[2016-10-31 16:14] LABS: BUN/CREATININE RATIO 28.26; CALCIUM SERUM 7.7 mg/dL (8.4-10.2); CREATININE SERUM 2.3 mg/dL (0.6-1.4); GLOM FILT RATE Estimated 18.8 mL/min (>60); POTASSIUM 4.4 mmol/L (3.5-5.1)
[2016-11-01 06:02] LABS: HEMATOCRIT 25.2 % (35.0-45.0); HEMOGLOBIN 8.4 gm/dL (12.0-16.0); MEAN CELL VOLUME 95.4 FL (83-96); MEAN CORPUSCULAR HEMOGLOBIN 31.7 PG (28-34); MEAN CORPUSCULAR HGB CONC 33.2 g/dL (30-36); MEAN PLATELET VOLUME 8.6 FL (6.5-11.5); RED BLOOD COUNT 2.64 X10e (3.90-5.30); RED CELL DISTRIBUTION WIDTH 13.9 % (11.0-15.5); WHITE BLOOD COUNT 18.1 X10e3 (4.0-10.5)
[2016-11-01 06:23] LABS: BUN/CREATININE RATIO 29.56; CREATININE SERUM 2.3 mg/dL (0.6-1.4); GLOM FILT RATE Estimated 18.8 mL/min (>60); POTASSIUM 4.8 mmol/L (3.5-5.1)
[2016-11-01 13:51] LABS: URINE APPEARANCE CLEAR; URINE BILIRUBIN NEG (NEG); URINE BLOOD 2+ (NEG); URINE COLOR YELLOW; URINE GLUCOSE NEG (NEG); URINE KETONE NEG (NEG); URINE LEUKOCYTE ESTERASE 1+ (NEG); URINE NITRATE NEG (NEG); URINE PROTEIN 3+ (NEG); URINE SPECIFIC GRAVITY 1.017 (1.003-1.035); URINE UROBILINOGEN 0.2 MG/DL (NEG)
[2016-11-01 13:53] LABS: URINE BACTERIA AUWI NEG (NEGATIVE); URINE SQUAMOUS EPITHELIAL CELL OCC /[HPF]
[2016-11-01 14:07] LABS: URINE YEAST PRESENT
== END 2016-11-02 15:30 | DRG 207 ==
LOC: CED 18:27 → CEDOF 22:27 → C3A PCU 10-17 03:23 → CICCU3 10-19 14:23 → C3A PCU 10-28 21:31
PROVIDERS: Emergency Medicine; Family Medicine; Internal Medicine; Internal Medicine Nephrology
PROC: 30233L1 Transfusion of Nonautologous Fresh Plasma into Peripheral Vein, Percutaneous Approach (ICD-10-PCS; 2016-10-18)
PROC: 0DJ08ZZ Inspection of Upper Intestinal Tract, Via Natural or Artificial Opening Endoscopic (ICD-10-PCS; 2016-10-19)
PROC: 02HV33Z Insertion of Infusion Device into Superior Vena Cava, Percutaneous Approach (ICD-10-PCS; 2016-10-19)
PROC: 4A02X4A Measurement of Cardiac Electrical Activity, Guidance, External Approach (ICD-10-PCS; 2016-10-19)
PROC: 5A1955Z Respiratory Ventilation, Greater than 96 Consecutive Hours (ICD-10-PCS; principal; 2016-10-19 11:08)
PROC: 0DH63UZ Insertion of Feeding Device into Stomach, Percutaneous Approach (ICD-10-PCS; 2016-10-19 11:08)
PROC: 0W9B3ZZ Drainage of Left Pleural Cavity, Percutaneous Approach (ICD-10-PCS; 2016-10-29)
DX: J96.01 Acute respiratory failure with hypoxia (principal); J69.0 Pneumonitis due to inhalation of food and vomit; N17.0 Acute kidney failure with tubular necrosis; E43 Unspecified severe protein-calorie malnutrition; A41.9 Sepsis, unspecified organism; J90 Pleural effusion, not elsewhere classified; L89.159 Pressure ulcer of sacral region, unspecified stage; D69.3 Immune thrombocytopenic purpura; T81.12XA Postprocedural septic shock, initial encounter; T81.4XXA Infection following a procedure, initial encounter; I50.32 Chronic diastolic (congestive) heart failure; B37.49 Other urogenital candidiasis; R13.10 Dysphagia, unspecified; Z87.891 Personal history of nicotine dependence; Y83.8 Other surgical procedures as the cause of abnormal reaction of the patient, or of later complication, without mention of misadventure at the time of the procedure; Y92.239 Unspecified place in hospital as the place of occurrence of the external cause; G20 Parkinson's disease; F02.80 Dementia in other diseases classified elsewhere, unspecified severity, without behavioral disturbance, psychotic disturbance, mood disturbance, and anxiety; Z68.20 Body mass index [BMI] 20.0-20.9, adult; G89.4 Chronic pain syndrome; Z51.5 Encounter for palliative care; F41.9 Anxiety disorder, unspecified; F32.9 Major depressive disorder, single episode, unspecified; E87.5 Hyperkalemia; D64.9 Anemia, unspecified; J44.9 Chronic obstructive pulmonary disease, unspecified; Z66 Do not resuscitate; Z90.49 Acquired absence of other specified parts of digestive tract; Z98.49 Cataract extraction status, unspecified eye; Z96.653 Presence of artificial knee joint, bilateral; Z88.2 Allergy status to sulfonamides; Z88.5 Allergy status to narcotic agent; Z80.0 Family history of malignant neoplasm of digestive organs
CPT/HCPCS: 36415; 36430; 36600; 71010; 71035; 71250; 74000; 74020; 74176; 74230; 74241; 76770; 80048; 80053; 80076; 81003; 82550; 82553; 82803; 82945; 82947; 83605; 83615; 83735; 83880; 83986; 84100; 84134; 84157; 84300; 84478; 84484; 85025; 85027; 85610; 85730; 86900; 86901; 87040; 87070; 87086; 87205; 87493; 88108; 88305; 89051; 89190; 92611; 93005; 93971; 94002; 94003; 94640; 94760; 94761; 97110; 97162; 97163; 97166; 97167; 97530; 99285; C9113; G8978-GP; G8979-GP; G8987-GO; G8988-GO; J0330; J0692; J1450; J1644; J1650; J1940; J2060; J2270; J2310; J2370; J3370; J3475; P9059

== ENCOUNTER 2016-11-02 15:31 | Inpatient (IN) | payer OTHER ==
--- NOTE | ~2016-11-02 | DS ---
Unit #: [id number] #: [id number] Patient: RAHUL AARON [id number] [facility] [address] [place], [place] [address] [id number] MR#: [id number] NAME: RAHUL AARON ROOM: 330 Age: 86 Sex: F Admission Date: 11/02/2016 : 1930 Discharge Date: 11/05/2016 Attending Physician: Ozzie Peter M.D. Primary Care Physician: Geovanny Malin Jr., M.D. DISCHARGE SUMMARY DATE OF DISCHARGE/ 11/05/2016. TIME OF Approximately 02:40. REASON FOR HOSPICE ADMISSION Comfort care measures. HISTORY OF PRESENT ILLNESS/HOSPITAL COURSE The patient is an 86-year-old female, admitted to scattered bed program on 11/02/2016 secondary to intractable/fairly prolonged hospital course at [facility] with recurrent respiratory compromise. Please refer to H and P for details as well as previous discharge summary dictated from [facility] for hospital course. The patient underwent routine care while in the hospital scattered bed program. She ultimately at 02:40. No distress. FINAL DIAGNOSES 1. Acute on chronic hypoxic/hypercapnic respiratory failure. 2. End-stage dementia. 3. Moderate to severe protein/calorie malnutrition. Dictated by... Stephen McnultyN/hal TD: 11/07/2016 21:04 JOB #: [id number] DISCHARGE SUMMARY Page 1 of 1 X Ozzie Peter MD X DISCHARGE SUMMARY
--- NOTE | ~2016-11-02 | HP ---
Unit #: [id number] #: [id number] Patient: RAHUL AARON [id number] [place] [id number] [facility]. [place], [place] [address] [id number] MR#: [id number] NAME: RAHUL AARON ROOM: 330 Age: 86 Sex: F Admission Date: 11/02/2016 : 1930 Attending Physician: Ozzie Peter M.D. Primary Care Physician: Geovanny Malin Jr., M.D. HISTORY AND PHYSICAL REASON FOR ADMISSION Comfort care measures/hospice care. HISTORY OF PRESENT ILLNESS Patient is an 86-year-old female, was recently admitted to [facility] for a fairly prolonged hospital course from October 16 to November 02, 2016. Ultimately, she had undergone a PEG tube placement secondary to intractable dysphagia. She does have a prior history of end-stage dementia. Please refer to discharge summary for details of that hospital course. On November 01, 2016, unfortunately patient deteriorated rapidly. Numerous family members were present at that time. Decision was made ultimately for comfort care measures only. Hospice services saw and evaluated patient on November 02, 2016, and decision was made for her to be admitted to the hospice scatter bed program to which she is currently receiving her comfort measures only. Please refer to prior discharge summary for details of hospital course. CURRENT CLINICAL DIAGNOSES 1. Acute on chronic respiratory failure. 2. End-stage dementia. 3. Dysphagia. 4. Pleural effusion. 5. Vdsbhofb-wv-tmyfyo protein/caloric malnutrition. Dictated by Stephen Mcnulty/yogseh TD: 11/03/2016 09:43 JOB #: [id number] Unit #: [id number] #: [id number] Patient: RAHUL AARON HISTORY AND PHYSICAL Page 1 of 1 X Ozzie Peter MD X HISTORY AND PHYSICAL
== END 2016-11-05 06:39 | disposition expired | DRG 189 ==
LOC: C3A PCU 15:31
DX: J96.21 Acute and chronic respiratory failure with hypoxia (principal); E43 Unspecified severe protein-calorie malnutrition; J90 Pleural effusion, not elsewhere classified; F03.90 Unspecified dementia, unspecified severity, without behavioral disturbance, psychotic disturbance, mood disturbance, and anxiety; Z51.5 Encounter for palliative care; J96.22 Acute and chronic respiratory failure with hypercapnia; Z68.20 Body mass index [BMI] 20.0-20.9, adult; R13.10 Dysphagia, unspecified
CPT/HCPCS: J2060; J2270